=== PATIENT | female | born 1940 | race Caucasian/White ===

== ENCOUNTER → 2017-06-02 09:45 | Outpatient (CLI) | payer MEDICARE, OTHER, SELFPAY ==
[2017-06-02 10:32] LABS: Alanine Aminotransferase 25 U/L (12-78); Albumin Level 3.7 gm/dL (3.4-5.0); Albumin/Globulin Ratio 1.1 (1.1-1.8); Alkaline Phosphatase 82 U/L (46-116); Anion Gap 11.9 mEq/L (5-15); Aspartate Amino Transferase 20 U/L (15-37); Bilirubin,Total 1.1 mg/dL (0.2-1.0); Blood Urea Nitrogen 20 mg/dL (7-18); Calcium 9.2 mg/dL (8.5-10.1); Carbon Dioxide 31 mmol/L (21.0-32.0); Chloride 105 mmol/L (98-107); Chol/HDL Ratio 1.9 (1-3.5); Cholesterol 154 mg/dL (140-200); Creatinine,Serum 0.67 mg/dL (0.55-1.02); Estimated Glomerular Filt Rate 86 ml/min (>60); GFR (African American) 104 ML/MIN (>60); Globulin 3.4 gm/dl (1.3-3.2); Glucose 92 mg/dL (74-106); HDL Cholesterol 83 mg/dL (29-89); LDL Cholesterol 60 mg/dL (0-130); Potassium 3.9 mmoL/L (3.5-5.1); Sodium 144 mmol/L (136-145); Total Protein,Serum 7.1 gm/dL (6.4-8.2); Triglycerides 54 mg/dL (30-200); VLDL Cholesterol 11 mg/dL (0-40)
== END ==
PROVIDERS: Visit Provider Internal Medicine
DX: E78.5 Hyperlipidemia, unspecified (principal); I10 Essential (primary) hypertension; M15.0 Primary generalized (osteo)arthritis; M81.0 Age-related osteoporosis without current pathological fracture
CPT/HCPCS: 36415; 80053; 80061

== ENCOUNTER → 2017-12-01 09:15 | Outpatient (CLI) | payer MEDICARE, OTHER, SELFPAY ==
[2017-12-01 09:33] LABS: Basophils % 0.3 % (0.1-2.0); Eosinophils # 0.3 K/mm3 (0.0-0.4); Eosinophils % 4.1 % (0.1-12.0); Hematocrit 40.7 % (37.0-47.0); Lymphocytes # 1.5 K/mm3 (0.7-4.5); Mean Corpuscular HGB Conc 31.9 g/dL (31.8-35.4); Mean Corpuscular Hemoglobin 29.4 pg (27.0-31.2); Mean Corpuscular Volume 92.3 fl (81-99); Mean Platelet Volume 6.9 fl (7.4-10.4); Monocytes # 0.4 K/mm3 (0.1-1.0); Monocytes % 6.2 % (1.7-9.3); Neutrophils # 4.2 K/mm3 (1.8-7.8); Neutrophils % 66.5 % (37.0-80.0); Platelet Count 268 K/mm3 (142-424); Red Blood Count 4.41 M/mm3 (4.20-5.40); Red Cell Distribution Width 13.2 % (11.5-17.5); White Blood Count 6.4 K/mm3 (4.8-10.8)
[2017-12-01 10:17] LABS: Alanine Aminotransferase 21 U/L (12-78); Albumin Level 3.5 gm/dL (3.4-5.0); Albumin/Globulin Ratio 1.1 (1.1-1.8); Alkaline Phosphatase 84 U/L (46-116); Anion Gap 11.3 mEq/L (5-15); Aspartate Amino Transferase 18 U/L (15-37); Bilirubin,Total 1.3 mg/dL (0.2-1.0); Blood Urea Nitrogen 18 mg/dL (7-18); Calcium 8.9 mg/dL (8.5-10.1); Carbon Dioxide 31 mmol/L (21.0-32.0); Chloride 106 mmol/L (98-107); Chol/HDL Ratio 1.8 (1-3.5); Cholesterol 160 mg/dL (140-200); Creatinine,Serum 0.65 mg/dL (0.55-1.02); Estimated Glomerular Filt Rate 89 ml/min (>60); GFR (African American) 107 ML/MIN (>60); Globulin 3.1 gm/dl (1.3-3.2); Glucose 85 mg/dL (74-106); HDL Cholesterol 87 mg/dL (29-89); LDL Cholesterol 62 mg/dL (0-130); Potassium 4.3 mmoL/L (3.5-5.1); Sodium 144 mmol/L (136-145); Total Protein,Serum 6.6 gm/dL (6.4-8.2); Triglycerides 54 mg/dL (30-200); VLDL Cholesterol 11 mg/dL (0-40)
== END ==
PROVIDERS: PCP Internal Medicine; Visit Provider Internal Medicine
DX: I10 Essential (primary) hypertension (principal); E78.5 Hyperlipidemia, unspecified; M15.0 Primary generalized (osteo)arthritis; K58.0 Irritable bowel syndrome with diarrhea; M81.0 Age-related osteoporosis without current pathological fracture; M41.25 Other idiopathic scoliosis, thoracolumbar region
CPT/HCPCS: 36415; 80053; 80061; 82652; 85025

== ENCOUNTER → 2018-04-14 15:15 | Outpatient (POV) | payer MEDICARE, OTHER, SELFPAY | PROVIDERS: Visit Provider Dermatology | DX: Z00.00 Encounter for general adult medical examination without abnormal findings (principal) ==

== ENCOUNTER → 2018-05-28 09:13 | Outpatient (CLI) | payer MEDICARE, OTHER, SELFPAY ==
[2018-05-28 19:43] LABS: Alanine Aminotransferase 21 U/L (12-78); Albumin Level 3.8 gm/dL (3.4-5.0); Albumin/Globulin Ratio 1.2 (1.1-1.8); Alkaline Phosphatase 78 U/L (46-116); Anion Gap 14.2 mEq/L (5-15); Aspartate Amino Transferase 19 U/L (15-37); Bilirubin,Total 1.2 mg/dL (0.2-1.0); Blood Urea Nitrogen 21 mg/dL (7-18); Calcium 9.1 mg/dL (8.5-10.1); Carbon Dioxide 29 mmol/L (21.0-32.0); Chloride 105 mmol/L (98-107); Chol/HDL Ratio 2.3 (1-3.5); Cholesterol 169 mg/dL (140-200); Creatinine,Serum 0.71 mg/dL (0.55-1.02); Estimated Glomerular Filt Rate 80 ml/min (>60); GFR (African American) 97 ML/MIN (>60); Globulin 3.1 gm/dl (1.3-3.2); Glucose 83 mg/dL (74-106); HDL Cholesterol 75 mg/dL (29-89); LDL Cholesterol 78 mg/dL (0-130); Potassium 4.2 mmoL/L (3.5-5.1); Sodium 144 mmol/L (136-145); Total Protein,Serum 6.9 gm/dL (6.4-8.2); Triglycerides 78 mg/dL (30-200); VLDL Cholesterol 16 mg/dL (0-40)
== END ==
PROVIDERS: Visit Provider Internal Medicine
DX: I10 Essential (primary) hypertension (principal); E78.5 Hyperlipidemia, unspecified; M15.0 Primary generalized (osteo)arthritis
CPT/HCPCS: 36415; 80053; 80061

== ENCOUNTER → 2018-07-14 12:05 | Outpatient (POV) | payer MEDICARE, OTHER, SELFPAY | PROVIDERS: Visit Provider Dermatology | DX: Z00.00 Encounter for general adult medical examination without abnormal findings (principal) ==

== ENCOUNTER → 2018-09-28 11:33 | Outpatient (CLI) | payer MEDICARE, OTHER, SELFPAY ==
--- NOTE | 2018-09-28 11:37 | XR_ITS ---
EXAM: XR thoracic spine 3V HISTORY: ITS.REASON: THORACOLUMBAR BACK PAIN; S/P BACK SURGERY Comparison: None FINDINGS: There is severe dextroscoliosis of the thoracic spine measuring 68 degrees by the Poole technique. No acute fracture or dislocation. No lytic or blastic change. IMPRESSION: Severe dextroscoliosis of the midthoracic spine
--- NOTE | 2018-09-28 11:37 | XR_ITS ---
EXAM: XR lumbar spine min 4V HISTORY: ITS.REASON: THORACOLUMBAR BACK PAIN; S/P BACK SURGERY ORDERING PHYSICIAN: Giovany Grubbs PATIENT AGE: 78 years COMPARISON: None FINDINGS: There is severe mid thoracic scoliosis convex right with compensatory lumbar curvature convex left with degenerative disc disease from L1 to S1 and mild facet arthritic changes at L4-L5 and L5-S1. No fracture or dislocation. No lytic or blastic change. Osteitis pubis is noted. There are some hypertrophic changes along the right iliac crest nonspecific. IMPRESSION: Compensatory lumbar curvature convex left measuring 27 degrees with degenerative disc disease and facet arthritic change
== END ==
PROVIDERS: PCP Internal Medicine; Visit Provider Internal Medicine
DX: M54.5 Low back pain (principal); M54.6 Pain in thoracic spine
CPT/HCPCS: 72072; 72110

== ENCOUNTER → 2018-10-06 14:39 | Outpatient (CLI) | payer MEDICARE, OTHER, SELFPAY ==
[2018-10-06 14:42] LABS: Microscopic, Urine URINE MICROSCOPIC (MICROSCOPIC)
[2018-10-06 14:57] LABS: Appearance,Urine CLEAR (Clear); Bilirubin,Urine Negative (Negative); Blood, Urine 1+ (Negative); Color,Urine YELLOW (Yellow); Glucose,Urine (UA) TRACE (Negative); Ketones,Urine Negative (Negative); Leukocyte Esterase,Urine Negative (Negative); Nitrate,Urine Negative (Negative); PH,Urine 6.5 (5.0-8.5); Protein,Urine Negative (Negative); Specific Gravity, Urine <= 1.005 (1.005-1.030); Urobilinogen,Urine 0.2 EU/dl (0.2)
[2018-10-06 15:00] LABS: Basophils % 0.1 % (0.1-2.0); Eosinophils % 0.1 % (0.1-12.0); Hematocrit 45.8 % (37.0-47.0); Hemoglobin 14.7 g/dL (12.2-16.2); Lymphocytes # 0.7 K/mm3 (0.7-4.5); Lymphocytes % 4.6 % (10-50); Mean Corpuscular HGB Conc 32.2 g/dL (31.8-35.4); Mean Corpuscular Hemoglobin 30.1 pg (27.0-31.2); Mean Corpuscular Volume 93.6 fl (81-99); Mean Platelet Volume 7.3 fl (7.4-10.4); Monocytes # 0.6 K/mm3 (0.1-1.0); Monocytes % 3.7 % (1.7-9.3); Neutrophils # 13.9 K/mm3 (1.8-7.8); Neutrophils % 91.5 % (37.0-80.0); Platelet Count 384 K/mm3 (142-424); Red Blood Count 4.89 M/mm3 (4.20-5.40); Red Cell Distribution Width 13.3 % (11.5-17.5); White Blood Count 15.2 K/mm3 (4.8-10.8)
--- NOTE | 2018-10-06 15:02 | XR_ITS ---
XR acute abdomen series HISTORY: ITS.REASON: ABD PAIN,CHEST PAIN,BLOATING,DIARRHEA ORDERING PHYSICIAN: Giovany Grubbs PATIENT AGE: 78 years COMPARISON: None Frontal view of the chest shows moderate to severe thoracic scoliosis convex right. Unremarkable cardiovascular structures with clear lungs. Upright and supine views of the abdomen and straights a nonspecific bowel gas pattern without obstruction or free air. There are surgical clips in the right upper quadrant. There are multiple calcifications overlying the left kidney consistent with left nephrolithiasis. CT may confirm. There are degenerative changes in the lumbar spine. Hypertrophic changes are present at the iliac crest bilaterally. IMPRESSION: Left nephrolithiasis, no acute finding
[2018-10-06 15:07] LABS: MANUAL DIFFERENTIAL MANUAL DIFFERENTIAL (MANUAL DIFF)
[2018-10-06 15:11] LABS: Alanine Aminotransferase 20 U/L (12-78); Albumin Level 3.6 gm/dL (3.4-5.0); Albumin/Globulin Ratio 0.9 (1.1-1.8); Alkaline Phosphatase 95 U/L (46-116); Amylase 55 U/L (25-115); Anion Gap 12.4 mEq/L (5-15); Aspartate Amino Transferase 10 U/L (15-37); Bilirubin,Total 0.8 mg/dL (0.2-1.0); Blood Urea Nitrogen 23 mg/dL (7-18); Carbon Dioxide 32 mmol/L (21.0-32.0); Chloride 98 mmol/L (98-107); Creatinine,Serum 0.93 mg/dL (0.55-1.02); Estimated Glomerular Filt Rate 58 ml/min (>60); GFR (African American) 71 ML/MIN (>60); Globulin 3.9 gm/dl (1.3-3.2); Glucose 173 mg/dL (74-106); Potassium 4.4 mmoL/L (3.5-5.1); Sodium 138 mmol/L (136-145); Total Protein,Serum 7.5 gm/dL (6.4-8.2); Troponin I < 0.02 ng/ml (0.00-0.06)
[2018-10-06 15:31] LABS: Bacteria,Urine Trace /lpf; WBC,Urine Occasional #/hpf (0-3)
[2018-10-06 15:50] LABS: Lymphocytes % 4 % (10-50); Monocytes % 1 % (2-9); Myelocytes % 1 (0-1); Neutrophils % 93 % (42-76); Total Cells Counted 100
[2018-10-06 15:51] LABS: Platelet Estimate Normal; RBC Morphology Normal
--- NOTE | 2018-10-06 15:55 | CT_ITS ---
CT abdomen pelvis wo con CLINICAL INDICATION: Abdominal pain, bloating, diarrhea ITS.REASON: ABD PAIN,BLOATING,DIARRHEA ORDERING PHYSICIAN: Giovany Grubbs PATIENT AGE: 78 years COMPARISON: TECHNIQUE: Axial images obtained with sagittal and coronal reformats. All CT scans at the facility use one or more dose reduction, viz: automated exposure control, ma/kV adjustment per patient size (including targeted exams where dose is matched to indication, i.e. head), or iterative reconstruction technique. FINDINGS: Moderate to severe thoracic scoliosis with mild lumbar scoliosis. There are atelectatic changes in the left lung base. Coronary artery calcifications are noted. Postcholecystectomy change. The spleen, adrenal glands, pancreas, and kidneys have an unremarkable appearance. Prior hysterectomy. No evidence of appendicitis. There is john colonic diverticulosis. No evidence of diverticulitis. No intestinal obstruction or free air. There is a mild amount of retained colonic feces. Thoracolumbar scoliosis with degenerative disc disease. IMPRESSION: John colonic diverticulosis with moderate amount of retained colonic feces. No acute finding
== END ==
PROVIDERS: Visit Provider Internal Medicine
DX: R07.9 Chest pain, unspecified (principal); R10.9 Unspecified abdominal pain; R19.7 Diarrhea, unspecified; R14.0 Abdominal distension (gaseous)
CPT/HCPCS: 36415; 74021; 74176; 80053; 81001; 82150; 84484; 85007; 85025; 93005

== ENCOUNTER → 2018-10-09 14:26 | Outpatient (CLI) | payer MEDICARE, OTHER, SELFPAY ==
[2018-10-09 14:43] LABS: Basophils % 0.2 % (0.1-2.0); Eosinophils # 0.3 K/mm3 (0.0-0.4); Eosinophils % 1.6 % (0.1-12.0); Hematocrit 42.6 % (37.0-47.0); Hemoglobin 13.4 g/dL (12.2-16.2); Lymphocytes # 1.9 K/mm3 (0.7-4.5); Lymphocytes % 9.9 % (10-50); Mean Corpuscular HGB Conc 31.4 g/dL (31.8-35.4); Mean Corpuscular Hemoglobin 29.2 pg (27.0-31.2); Mean Corpuscular Volume 93.1 fl (81-99); Mean Platelet Volume 6.7 fl (7.4-10.4); Monocytes # 1.2 K/mm3 (0.1-1.0); Monocytes % 6.1 % (1.7-9.3); Neutrophils # 15.7 K/mm3 (1.8-7.8); Neutrophils % 82.4 % (37.0-80.0); Platelet Count 363 K/mm3 (142-424); Red Blood Count 4.57 M/mm3 (4.20-5.40); Red Cell Distribution Width 13.6 % (11.5-17.5)
[2018-10-09 15:02] LABS: MANUAL DIFFERENTIAL MANUAL DIFFERENTIAL (MANUAL DIFF)
[2018-10-09 16:14] LABS: Hypochromasia 1+; Lymphocytes % 17 % (10-50); Monocytes % 4 % (2-9); Neutrophils % 75 % (42-76); Platelet Estimate Normal; Total Cells Counted 100
[2018-10-09 16:28] LABS: C-Reactive Protein 11.2 mg/dL (0.0-0.9)
[2018-10-09 16:36] LABS: Erythrocyte Sedimentation Rate 25 mm/hr (0-30)
[2018-10-13 12:10] LABS: B. henselae IgG Negative titer (Neg:<1:320); B. henselae IgM Negative titer (Neg:<1:100); B. quintana IgG Negative titer (Neg:<1:320)
[2018-10-14 09:30] LABS: B. quintana IgM Negative titer (Neg:<1:100)
== END ==
PROVIDERS: Visit Provider Internal Medicine
DX: M54.5 Low back pain (principal); M54.6 Pain in thoracic spine; D72.829 Elevated white blood cell count, unspecified; R68.83 Chills (without fever); S40.819A Abrasion of unspecified upper arm, initial encounter; W55.03XA Scratched by cat, initial encounter
CPT/HCPCS: 36415; 85007; 85025; 85651; 86140; 86611; 87040

== ENCOUNTER 2018-10-11 10:46 | Observation (INO) ==
[2018-10-11 11:19] LABS: Microscopic, Urine URINE MICROSCOPIC (MICROSCOPIC)
[2018-10-11 11:21] LABS: Appearance,Urine CLEAR (Clear); Bilirubin,Urine Negative (Negative); Blood, Urine 2+ (Negative); Color,Urine YELLOW (Yellow); Glucose,Urine (UA) Negative (Negative); Ketones,Urine Negative (Negative); Leukocyte Esterase,Urine Negative (Negative); PH,Urine 7.5 (5.0-8.5); Protein,Urine Negative (Negative)
[2018-10-11 11:29] LABS: Bacteria,Urine 3+ /lpf
[2018-10-11 11:30] LABS: Basophils % 0.1 % (0.1-2.0); Eosinophils % 0.1 % (0.1-12.0); Hematocrit 39.5 % (37.0-47.0); Hemoglobin 12.9 g/dL (12.2-16.2); Lymphocytes # 1.1 K/mm3 (0.7-4.5); Lymphocytes % 3.7 % (10-50); Mean Corpuscular HGB Conc 32.7 g/dL (31.8-35.4); Mean Platelet Volume 7.1 fl (7.4-10.4); Monocytes # 1.4 K/mm3 (0.1-1.0); Monocytes % 4.6 % (1.7-9.3); Neutrophils # 27.4 K/mm3 (1.8-7.8); Neutrophils % 91.5 % (37.0-80.0); Platelet Count 348 K/mm3 (142-424); Red Blood Count 4.29 M/mm3 (4.20-5.40); Red Cell Distribution Width 13.4 % (11.5-17.5)
[2018-10-11 11:34] LABS: Albumin Level 2.9 gm/dL (3.4-5.0); Albumin/Globulin Ratio 0.8 (1.1-1.8); Anion Gap 11.4 mEq/L (5-15); Bilirubin,Total 1.3 mg/dL (0.2-1.0); Calcium 9.1 mg/dL (8.5-10.1); Globulin 3.8 gm/dl (1.3-3.2); Total Protein,Serum 6.7 gm/dL (6.4-8.2)
[2018-10-11 11:42] LABS: Lymphocytes % 4 % (10-50); Monocytes % 5 % (2-9); Neutrophils % 69 % (42-76); RBC Morphology Normal; Total Cells Counted 100
--- NOTE | 2018-10-11 11:42 | Emergency Department Note ---
ED Disposition <Gregg Landeros - Last Filed: 10/11/18 11:37> Condition on Discharge: Good - Critical Care Critical Care Time: No <SivaJosef Gracia - Last Filed: 11/09/18 10:17> Clinical Impression: Abdominal pain Qualifiers: Abdominal location: generalized Qualified Code(s): R10.84 - Generalized abdomi nal pain Disposition: Admitted as Observation Attestation: On 10/11/18, the high probability of a clinically significant, sudden or life threatening deterioration of the following system(s) required my full and direct attention, intervention and personal management. The time I documented below is in addition to time spent performing reported procedures but includes the following listed in this critical care notation. Medical Decision Making - Lab Data Result diagrams: 10/11/18 11:10 <Gregg Landeros - Last Filed: 10/11/18 11:37> - Medical Records Medical records reviewed: Yes: I reviewed the patient's medical records. - Larry Inquiry Pt receiving controlled substance: No - Lab Data Result diagrams: 10/13/18 05:32 10/13/18 05:32 <SivaJosef Gracia - Last Filed: 11/09/18 10:17> Vital Signs: 10/11/18 11:00 10/11/18 11:18 10/11/18 12:00 Temperature 97.8 F Temperature Source Oral Pulse Rate Pulse Rate [Right Brachial] 101 H 85 92 H Respiratory Rate 18 18 16 Blood Pressure Blood Pressure [Right Arm] 140/76 124/70 145/86 H Blood Pressure Mean [Right Arm] 97 88 105 Blood Pressure Source Blood Pressure Source [Right Arm] Automatic Cuff Automatic Cuff Automatic Cuff Blood Pressure Position Blood Pressure Position [Right Arm] Sitting Sitting Sitting 02 Sat by Pulse Oximetry 99 98 94 L Oxygen Delivery Method Room Air Room Air Room Air 10/11/18 12:30 10/11/18 13:00 10/11/18 13:05 Temperature 98.2 F Temperature Source Oral Pulse Rate 70 Pulse Rate [Right Brachial] 75 Respiratory Rate 17 18 Blood Pressure 121/85 Blood Pressure [Right Arm] 131/65 Blood Pressure Mean [Right Arm] 87 Blood Pressure Source Automatic Cuff Blood Pressure Source [Right Arm] Automatic Cuff Blood Pressure Position Sitting Blood Pressure Position [Right Arm] Sitting 02 Sat by Pulse Oximetry 94 L 95 Oxygen Delivery Method Room Air Room Air Room Air - Lab Data Lab Results 10/11/18 11:10: Urine Color Yellow, Urine Appearance Clear, Urine pH 7.5, Ur Specific [place] 1.010, Urine Protein Negative, Urine Glucose (UA) Negative, Urine Ketones Negative, Urine Blood 2+, Urine Nitrate Negative, Urine Bilirubin Negative, Urine Urobilinogen 1.0, Ur Leukocyte Esterase Negative, Urine RBC 5- 10, Urine WBC 3-5, Ur Squamous Epith Cells 5-10, Urine Bacteria 3+ 10/11/18 11:10: Stool Occult Blood Negative 10/11/18 11:10: WBC 30.0 H* D, RBC 4.29, Hgb 12.9, Hct 39.5, MCV 92.0, MCH 30.1, MCHC 32.7, RDW 13.4, Plt Count 348, MPV 7.1 L, Neut % (Auto) 91.5 H, Lymph % (Auto) 3.7 L, Kings % (Auto) 4.6, Eos % (Auto) 0.1, Baso % (Auto) 0.1, Neut # (Auto) 27.4 H, Lymph # (Auto) 1.1, Kings # (Auto) 1.4 H, Eos # (Auto) 0.0, Baso # (Auto) 0.0, Total Counted 100, Neutrophils % (Manual) 69, Band Neutrophils % 21.0 H, Lymphocytes % (Manual) 4 L, Atypical Lymphs % 1.0, Monocytes % (Manual) 5, Platelet Estimate Normal, RBC Morphology Normal 10/11/18 11:10: Sodium 138, Potassium 4.4, Chloride 100, Carbon Dioxide 31, Anion Gap 11.4, BUN 18, Creatinine 1.09 H, Estimated Creat Clear 37, Estimated GFR 49 L, Est GFR ( Amer) 59, Glucose 136 H, Calcium 9.1, Total Bilirubin 1.3 H, AST 51 H, ALT 62, Alkaline Phosphatase 116, Total Protein 6.7, Albumin 2.9 L, Globulin 3.8 H, Albumin/Globulin Ratio 0.8 L, Amylase 53, Lipase 76 10/11/18 11:10: Lactate 2.0 Orders (Tests/Meds): ED MEDICATIONS Discontinued Medications Generic Name Dose Route Start Last Admin Trade Name Freq PRN Reason Stop Dose Admin Acetaminophen 650 mg 10/11/18 14:14 10/12/18 13:48 Acetaminophen 325mg Tab PO 11/10/18 14:13 650 mg Q6HP PRN Administration Mild Pain Alprazolam 0.25 mg 10/11/18 13:00 10/11/18 15:18 Xanax 0.25mg Tablet PO 11/10/18 12:59 Not Given TID DIANNE Alprazolam 0.25 mg 10/11/18 21:00 10/12/18 08:13 Xanax 0.25mg Tablet PO 11/10/18 12:59 Not Given TID DIANNE Alprazolam 0.25 mg 10/12/18 21:00 10/12/18 22:41 Xanax 0.25mg Tablet PO 11/11/18 20:59 0.25 mg HS DIANNE Administration Belladonna Alkaloids 60 ml 10/12/18 14:18 10/12/18 15:06 Gi Cocktail 60ml Udc PO 10/12/18 14:19 60 ml ONCE ONE Administration Bisacodyl 10 mg 10/12/18 21:00 10/12/18 21:27 Dulcolax 10mg Supp RC 10/12/18 21:01 10 mg ONCE ONE Administration Diatrizoate Meglum/Diatrizoate Sod 20 ml 10/12/18 12:14 10/12/18 12:15 Rad-Gastrografin (66%-10%);120ml PO 10/12/18 12:15 20 ml ONCE ONE Administration Dicyclomine HCl 10 mg 10/11/18 14:11 Bentyl 10mg Capsule PO 11/10/18 14:10 TIDP PRN ABD PAIN Dicyclomine HCl 10 mg 10/11/18 14:38 10/13/18 12:35 Bentyl 10mg Capsule PO 11/10/18 14:10 10 mg TID DIANNE Administration Sodium Chloride 1,000 mls @ 999 mls/hr 10/11/18 11:15 10/11/18 11:15 Sod Chlor 0.9% 1000ml Bag IV 10/11/18 12:15 999 mls/hr .Q1H1M DIANNE Administration Sodium Chloride 1,000 mls @ 100 mls/hr 10/11/18 12:45 10/11/18 15:17 Sod Chlor 0.9% 1000ml Bag IV 11/10/18 12:44 Not Given .Q10H DIANNE Ampicillin Sodium/Sulbactam 100 mls @ 200 mls/hr 10/11/18 12:45 10/11/18 15: 17 Sodium 3 gm/ Sodium Chloride IV 10/25/18 12:44 Not Given Q8H [facility] Protocol Metronidazole 100 mls @ 100 mls/hr 10/11/18 12:42 Flagyl 500mg/100ml Ivpb IV 10/11/18 13:41 Q12 ONE Protocol Pantoprazole Sodium 40 mg/ 100 mls @ 10 mls/hr 10/11/18 21:00 Sodium Chloride IV 11/10/18 20:59 .Q10H DIANNE Sodium Chloride 1,000 mls @ 100 mls/hr 10/11/18 13:05 10/11/18 15:18 Sod Chlor 0.9% 1000ml Bag IV 11/10/18 12:44 Not Given .Q10H [facility], [facility]1983 Lactated Ringer's 1,000 mls @ 100 mls/hr 10/11/18 14:15 10/13/18 09:58 Lactated Ringer's 1000 Ml Bag IV 11/10/18 14:14 Not Given .Q10H [facility] Ibuprofen 600 mg 10/11/18 14:14 Motrin 600mg Tablet PO 11/10/18 14:13 Q6HP PRN Mild Pain Ioversol 75 ml 10/12/18 12:14 10/12/18 12:15 Rad-Optiray 350 100ml Vial IV 10/12/18 12:15 75 ml ONCE ONE Administration Protocol Irbesartan 75 mg 10/12/18 09:00 Avapro 75mg Tablet PO 11/11/18 08:59 DAILY [facility] Irbesartan 75 mg 10/12/18 09:00 10/13/18 09:54 Avapro 75mg Tablet PO 11/11/18 08:59 Not Given DAILY DIANNE Magnesium Citrate 1 bot 10/12/18 14:31 10/12/18 16:17 Magnesium Citrate 10oz Bottle PO 10/12/18 14:32 1 bot ONCE ONE Administration Morphine Sulfate 2 mg 10/11/18 11:46 10/11/18 11:57 Morphine 2mg/Ml Syringe IV 10/11/18 11:47 2 mg ONCE ONE Administration Morphine Sulfate 2 mg 10/11/18 12:42 Morphine 2mg/Ml Syringe IV 11/10/18 12:41 Q4HP PRN Moderate to Severe Pain Morphine Sulfate 2 mg 10/11/18 14:45 10/11/18 14:56 Morphine 2mg/Ml Syringe IV 10/11/18 14:46 2 mg ONCE ONE Administration Morphine Sulfate 2 mg 10/12/18 21:30 10/12/18 21:33 Morphine 2mg/Ml Syringe IV 11/11/18 21:29 2 mg Q4HP PRN Administration Severe Pain Naproxen 500 mg 10/11/18 21:00 10/13/18 09:55 Naprosyn 500mg Tablet PO 11/10/18 20:59 Not Given BID [facility], [facility] Non-Formulary Medication 1 tab 10/12/18 09:00 Estrogens,Esterified [Menest] PO 11/11/18 08:59 DAILY [facility], [facility] Non-Formulary Medication 20 mg 10/12/18 09:00 Rosuvastatin Calcium PO 11/11/18 08:59 DAILY [facility] Pt's Own Med 1 tab 10/12/18 09:00 10/13/18 09:54 Estrogens,Esterified PO 11/11/18 08:59 Not Given [Menest] 0.625 Mg DAILY [facility] Ondansetron HCl 4 mg 10/11/18 11:46 10/11/18 11:57 Zofran 4mg/2ml Vial IV 10/11/18 11:47 4 mg ONCE ONE Administration Ondansetron HCl 4 mg 10/11/18 12:42 Zofran 4mg/2ml Vial IV 11/10/18 12:41 Q6HP PRN Nausea And Vomiting Ondansetron HCl 4 mg 10/11/18 13:05 10/12/18 21:35 Zofran 4mg/2ml Vial IV 11/10/18 12:41 4 mg Q6HP PRN Administration Nausea And Vomiting Pantoprazole Sodium 40 mg 10/11/18 14:15 10/13/18 09:55 Protonix 40mg Tablet PO 11/10/18 14:14 Not Given BID [facility] Polyethylene Glycol 17 gm 10/11/18 18:00 10/13/18 09:55 Miralax 17gm Packet PO 11/10/18 17:59 Not Given DAILY [facility] Pravastatin Sodium 20 mg 10/11/18 21:00 10/12/18 22:22 Pravachol 20mg Tablet PO 11/10/18 20:59 Not Given HS DIANNE Simethicone 160 mg 10/11/18 14:12 10/13/18 05:41 Mylicon 80mg Chewable Tablet PO 11/10/18 14:11 160 mg Q4HP PRN Administration GAS Sodium Chloride 10 ml 10/11/18 12:42 Saline Flush 10ml Syringe IV 11/10/18 12:41 NEEDED PRN Maintain IV Site Sodium Chloride 10 ml 10/11/18 13:05 Saline Flush 10ml Syringe IV 11/10/18 12:41 NEEDED PRN Maintain IV Site Sodium Chloride 10 ml 10/12/18 12:14 10/12/18 12:15 Rad-Saline Flush 10ml Syringe IV 10/12/18 12:15 10 ml ONCE ONE Administration ORDERS Category Date Time Status Consult to General Surgery [CONS] Routine Cons 10/11/18 12:42 Ordered Abdominal Pain HPI - General Mode of Arrival: Family Vehicle Limitations: No Limitations Description of Symptoms (Recalled from ER Triage Doc. by RN): has been treated by family practitioner (dr ryder) for issues over the last few weeks including right side abd and back pain; patient states they even went as far as to diagnose her with shingles and gave her steroids (no lesions noted); pt further states she has had her gb removed, has had a partial hysterectomy, denies kidney issues and is unsure about whether her appendix is present still or not. <Gregg Landeros - Last Filed: 10/11/18 11:37> <Josef Paniagua - Last Filed: 11/09/18 10:17> - General Chief Complaint: Abdominal Pain Stated Complaint: SevereAbdominal pain Time Seen by Provider: 10/11/18 11:15 - History of Present Illness HPI narrative: The patient is a 78-year-old female who has had abdominal pain for a week or 2. The patient has had generalized pain. The patient is tender. (Gregg Landeros) - Related Data Home Medications Medication Instructions Recorded Confirmed ALPRAZolam [Alprazolam 0.25mg 0.25 mg PO HS 03/01/18 10/12/18 Tab] Irbesartan [Irbesartan 75mg Tablet] 75 mg PO DAILY 03/01/18 10/12/18 Rosuvastatin Calcium 5 mg PO DAILY 03/01/18 10/12/18 Estrogens,Esterified [Menest] 0.313 mg PO HS 10/12/18 10/12/18 Previous Rx's Medication Instructions Recorded Dicyclomine HCl [Bentyl 10mg 10 mg PO TIDP PRN 30 Days #60 cap 10/13/18 capsule] Omeprazole [Omeprazole 20mg 20 mg PO DAILY 30 Days #30 cap 10/13/18 Capsule] Allergies Allergy/AdvReac Type Severity Reaction Status Date / Time levofloxacin [From LEVAQUIN] Allergy Unknown Verified 11/25/17 17:35 Penicillins [PENICILLINS] Allergy Unknown Verified 11/25/17 17:35 Sulfa (Sulfonamide Allergy Unknown Verified 11/25/17 17:35 Antibiotics) [SULFA (SULFONAMIDE ANTIBIOTICS)] [facility] History - Hepatitis A Screen Drug use history?: No High risk sexual behaviors?: No History of sexually transmitted infection?: No Currently employed?: No Childcare worker?: No Do you have indoor plumbing?: Yes Do you have electricity?: Yes Laterality Cases: Bilateral: Tonsillectomy - Social History Alcohol Intake: never <Gregg Landeros - Last Filed: 10/11/18 11:37> I have reviewed the patient's past medical history: Yes <Josef Paniagua - Last Filed: 11/09/18 10:17> - Hepatitis A Screen Attestation statement:: This patient has been screened for Hepatitis A risk factors. ROS Obtained: Yes All systems reviewed & no additional complaints <Josef Paniagua - Last Filed: 11/09/18 10:17> Physical Exam - General General appearance: alert, in no apparent distress - Respiratory Respiratory exam: Present: normal lung sounds bilaterally. Absent: respiratory distress - Cardiovascular Cardiovascular exam: Present: regular rate, normal rhythm. Absent: JVD - Neurological Exam Neurological exam: Present: alert, oriented X3 <Josef Paniagua - Last Filed: 11/09/18 10:17>
--- NOTE | 2018-10-11 16:36 | History & Physical Report ---
*Admission Date: 10/11/18 *Chief complaint: Worsening abdominal pain *History of present illness: Ms. Armstrong is a 78-year-old female who presents with acute worsening of abdominal pain. She came to the ER today due to the combination of symptoms including nausea, severe abdominal pain, and generalized worsening feeling over the past week. She reports that for the past 2 weeks she has had some intermittent abdominal pain with acute change a week ago when she had several loose watery bowel movements in 1 day. She took Imodium which resolved her diarrhea but then reports over the course of the week she has had progressive worsening of crampy acute onset pain it is at 9-10 out of 10. Pain will resolve on its own with Tylenol or flurbiprofen. Has been trying to have bowel movements daily and using enemas and suppositories with minimal benefit. Has not tried any stool softeners or medications from above. Did state as well over the past week she has had worsening heartburn type symptoms and started taking Tums 6 to 8 tablets daily for the past week which gave her concern that she is caused herself a problem. She presented on the for similar symptoms at which time blood cultures were obtained, CT was obtained, urine culture was obtained, and lab work was performed. The only remarkable findings at that time were a white cell count of 19,000 and incidental findings of nephrolithiasis. CT of the abdomen was otherwise unremarkable with appreciation of diffuse diverticulosis but no signs of inflammation or stranding. Additionally her kidney function and electrolytes were normal. On repeat work-up today patient has a worsening white cell count of 30,000, elevated CRP, but otherwise unremarkable labs. No imaging done in the ER today however. She has not had antibiotics over the past week. Did have some steroids over a week ago. Patient was admitted to medicine for further management and work-up. On assessment after patient got to the floor, patient is sitting in bedside chair comfortable with normal vitals. No acute distress on room air. Complaining of no abdominal pain at this time. She is accompanied by her son and daughter who are very aggressive advocates for her care, additionally she has a second daughter who is a nurse in [employer] [facility] who is sending suggestions via text. Family is very concerned for her status given the white cell count elevation and severe abdominal pain, however on initial assessment, patient is appropriate and in no acute discomfort after having received only IV fluids and morphine. Denies headache, chest pain, nausea, vomiting, complains of abdominal discomfort, constipation. No confusion or dizziness. No bleeding, no hematochezia, no hematemesis. [facility] History I have reviewed the patient's past medical history: Yes Medical History: Reports:: Hypertension *Have you ever received a pneumonia vaccine?: No *Have you received a flu vaccine this season?: No Comment:: IBS-D Laterality Cases: Bilateral: Tonsillectomy Other Surgeries: Yes: Other (Back surgery for scoliosis) - *Social History Smoking Status: Smoker, status unknown Alcohol Intake: never Substance Use Type: denies use *Occupational Status:: retired *Travel in the last 8 weeks: None Family Hx:: Non-contributory Review of Systems - Review of Systems Review of systems:: pertinent systems reviewed and negative unless documented below Meds Home Medications Medication Instructions Recorded Confirmed Type ALPRAZolam [Alprazolam 0.25mg 0.25 mg PO TID 03/01/18 03/01/18 History Tab] Estrogens,Esterified [Menest] 1 tab PO DAILY 03/01/18 03/01/18 History Irbesartan 75 mg PO DAILY 03/01/18 03/01/18 History Rosuvastatin Calcium 20 mg PO DAILY 03/01/18 03/01/18 History Allergies Allergy/AdvReac Type Severity Reaction Status Date / Time levofloxacin [From LEVAQUIN] Allergy Unknown Verified 11/25/17 17:35 Penicillins [PENICILLINS] Allergy Unknown Verified 11/25/17 17:35 Sulfa (Sulfonamide Allergy Unknown Verified 11/25/17 17:35 Antibiotics) [SULFA (SULFONAMIDE ANTIBIOTICS)] Exam Vital signs and Labs for Last 24 Hours: Temp Pulse Resp BP Pulse Ox 98.4 F 96 H 16 134/71 95 10/11/18 16:00 10/11/18 16:00 10/11/18 16:00 10/11/18 16:00 10/11/18 16:00 Laboratory Results - last 24 hr 10/11/18 11:10: Urine Color Yellow, Urine Appearance Clear, Urine pH 7.5, Ur Specific [place] 1.010, Urine Protein Negative, Urine Glucose (UA) Negative, Urine Ketones Negative, Urine Blood 2+, Urine Nitrate Negative, Urine Bilirubin Negative, Urine Urobilinogen 1.0, Ur Leukocyte Esterase Negative, Urine RBC 5- 10, Urine WBC 3-5, Ur Squamous Epith Cells 5-10, Urine Bacteria 3+ 10/11/18 11:10: Stool Occult Blood Negative 10/11/18 11:10: WBC 30.0 H* D, RBC 4.29, Hgb 12.9, Hct 39.5, MCV 92.0, MCH 30.1, MCHC 32.7, RDW 13.4, Plt Count 348, MPV 7.1 L, Neut % (Auto) 91.5 H, Lymph % (Auto) 3.7 L, [place] % (Auto) 4.6, Eos % (Auto) 0.1, Baso % (Auto) 0.1, Neut # (Auto) 27.4 H, Lymph # (Auto) 1.1, [place] # (Auto) 1.4 H, Eos # (Auto) 0.0, Baso # (Auto) 0.0, Total Counted 100, Neutrophils % (Manual) 69, Band Neutrophils % 21.0 H, Lymphocytes % (Manual) 4 L, Atypical Lymphs % 1.0, Monocytes % (Manual) 5, Platelet Estimate Normal, RBC Morphology Normal 10/11/18 11:10: Sodium 138, Potassium 4.4, Chloride 100, Carbon Dioxide 31, Anion Gap 11.4, BUN 18, Creatinine 1.09 H, Estimated Creat Clear 37, Estimated GFR 49 L, Est GFR ( Amer) 59, Glucose 136 H, Calcium 9.1, Total Bilirubin 1.3 H, AST 51 H, ALT 62, Alkaline Phosphatase 116, Total Protein 6.7, Albumin 2.9 L, Globulin 3.8 H, Albumin/Globulin Ratio 0.8 L, Amylase 53, Lipase 76 10/11/18 11:10: Lactate 2.0 I & O for Last 24 hours: Intake & Output 10/08/18 10/09/18 10/10/18 10/11/18 23:59 23:59 23:59 23:59 Intake Total 1000 / 1000 Output Total 350 / 350 Balance 650 / 650 Weight 56.274 kg - *Routine HEENT Exam Head: Present: normocephalic Eye: Present: EOMI, PERRL ENT: Present: mucous membranes moist - *Routine Neck Exam Present: supple. Absent: lymphadenopathy - *Routine Respiratory Exam Present: CTA bilaterally - *Routine Cardiovascular Exam Present: RRR - *Routine Abdominal Exam Present: soft, normoactive bowel sounds, tenderness (Diffuse nonfocal tenderness 2-3/10. Palpable density in lower abdomen, possible scybala). Absent: distended, rebound, guarding, organomegaly - *Routine Extremities Exam Absent: cyanosis, clubbing, edema - Routine Back/Spine/Pelvis Exam Back/Spine: Absent: CVA tenderness, paraspinal tenderness Comments: Significant thoracic scoliosis with prominence of right side of back, well- healed midline scar along entire length of back from previous surgery, no rash. - *Routine Skin Exam Present: warm. Absent: erythema, rash - *Routine Neurological Exam Present: alert, oriented X3. Absent: altered mental status Assessment and Plan (1) GERD (gastroesophageal reflux disease) Current visit: Yes Status: Acute Qualifiers: Esophagitis presence: esophagitis presence not specified Qualified Code(s): K21.9 - Gastro-esophageal reflux disease without esophagitis Category: Medical Code(s): K21.9 - Gastro-esophageal reflux disease without esophagitis Initiate PPI (2) Leukocytosis Current visit: Yes Status: Acute Qualifiers: Leukocytosis type: unspecified Qualified Code(s): D72.829 - Elevated white blood cell count, unspecified Category: Medical Code(s): D72.829 - Elevated white blood cell count, unspecified Unclear etiology at this time. Patient also has elevation in her CRP. While it is suggestive of possible infection, she has no abnormalities on her vitals are focal findings that would suggest etiology. No concern for peritonitis based on exam. Differential diagnosis consists of diverticulitis, leukemoid reaction, deep marginalization, pain, C. difficile, or unspecified intra-abdominal infection (TBD). We will repeat lab work in the morning. Decision to hold on antibiotics at this time given no other signs of infection and no focal findings. Suspect it would be shot in the dark to initiate antibiotics empirically without other findings. Of note patient's blood culture and urine culture from 2 days ago were negative at 48 hours giving additional comfort and holding antibiotics at this time. Will have low threshold to initiate if patient has clinical change. If has clinical change would initiate cefepime and Flagyl. If has loose stools, will obtain C. difficile culture and consider initiation of vancomycin and Flagyl if positive. (3) Hypertension Current visit: Yes Status: Chronic Qualifiers: Hypertension type: essential hypertension Qualified Code(s): I10 - Essential (primary) hypertension Category: Medical Code(s): I10 - Essential (primary) hypertension Continue home medications (4) Abdominal pain Current visit: Yes Status: Acute Qualifiers: Abdominal location: generalized Qualified Code(s): R10.84 - Generalized abdominal pain Category: Medical Code(s): R10.9 - Unspecified abdominal pain Unclear etiology, see above. Tylenol, naproxen, Bentyl. Monitor for improvement. KUB to assess for any obstructions or pathology. If symptoms worsen, KUB shows abnormalities, will pursue CAT scan with contrast. (5) Kyphoscoliosis Current visit: No Status: Chronic Category: Medical Code(s): M41.9 - Scoliosis, unspecified
[2018-10-12 06:24] LABS: Basophils % 0.2 % (0.1-2.0); Eosinophils # 0.2 K/mm3 (0.0-0.4); Eosinophils % 1.2 % (0.1-12.0); Hematocrit 32.8 % (37.0-47.0); Lymphocytes # 1.8 K/mm3 (0.7-4.5); Lymphocytes % 12.8 % (10-50); Mean Corpuscular HGB Conc 32.2 g/dL (31.8-35.4); Mean Corpuscular Volume 93.2 fl (81-99); Mean Platelet Volume 6.7 fl (7.4-10.4); Monocytes # 0.8 K/mm3 (0.1-1.0); Monocytes % 5.8 % (1.7-9.3); Neutrophils # 11.4 K/mm3 (1.8-7.8); Platelet Count 275 K/mm3 (142-424); Red Blood Count 3.52 M/mm3 (4.20-5.40); Red Cell Distribution Width 13.5 % (11.5-17.5); White Blood Count 14.2 K/mm3 (4.8-10.8)
[2018-10-12 07:00] LABS: Albumin Level 2.3 gm/dL (3.4-5.0); Albumin/Globulin Ratio 0.8 (1.1-1.8); Anion Gap 8.2 mEq/L (5-15); Total Protein,Serum 5.3 gm/dL (6.4-8.2)
[2018-10-12 07:06] LABS: Hemoglobin 10.6 g/dL (12.2-16.2)
--- NOTE | 2018-10-12 07:22 | Consult Report ---
*Admission Date: 10/11/18 *Reason for consult:: ABDOMINAL PAIN *History of present illness: Patient is a 78-year-old white female seen in consultation from [facility] internal medicine service for abdominal pain. Patient has had some degree of symptoms for over the past 2 weeks. This began as right lateral thoracoabdominal pain. She has seen her primary care provider and has been treated and managed as an outpatient. She actually had been treated for shingles. She did undergo a course of steroids. Her symptoms of right-sided posterior lateral thoracoabdominal pain progressed to some abdominal bloating and constipation. Patient had taken some bowel regimen as an outpatient and then 8 days ago she developed some significant diarrhea. She does state that she has a history of IBS. Over this past week she has had increasing dyspepsia and heartburn. She had been seen and evaluated on 10/09/[address] scan without any contrast. She also had a white blood cell count of 19,000 at that time. Yesterday she had quite severe acute exacerbation of abdominal pain and presented to the emergency department. She was found to have a significant leukocytosis of 30,000. She was admitted for inpatient management. Her symptoms spontaneously resolved. Surgical consultation was ordered. Review of Systems - Review of Systems Review of systems:: pertinent systems reviewed and negative unless documented below [facility] History Medical History: Reports:: Hyperlipidemia, Hypertension Denies:: Cancer, Diabetes Mellitus Type 1, Diabetes Mellitus Type 2, Internal Pacemaker, MRSA *Have you ever received a pneumonia vaccine?: Yes *Have you received a flu vaccine this season?: No Laterality Cases: Bilateral: Tonsillectomy Other Surgeries: Yes: Other (Back surgery for scoliosis). No: Pacemaker Amputation: No Fractures: No - *Social History Educational Level: Attended College Smoking Status: Smoker, status unknown Alcohol Intake: never Substance Use Type: denies use *Occupational Status:: retired Housing: house *Travel in the last 8 weeks: None - Psychiatric History Expresses thoughts of harming self/others: None Suicide Plan Description: No Plan Family Hx:: Non-contributory Meds Home Medications Medication Instructions Recorded Confirmed Type ALPRAZolam [Alprazolam 0.25mg 0.25 mg PO TID 03/01/18 10/12/18 History Tab] Estrogens,Esterified [Menest] 1 tab PO DAILY 03/01/18 10/12/18 History Irbesartan 75 mg PO DAILY 03/01/18 10/12/18 History Rosuvastatin Calcium 20 mg PO DAILY 03/01/18 10/12/18 History Allergies Allergy/AdvReac Type Severity Reaction Status Date / Time levofloxacin [From LEVAQUIN] Allergy Unknown Verified 11/25/17 17:35 Penicillins [PENICILLINS] Allergy Unknown Verified 11/25/17 17:35 Sulfa (Sulfonamide Allergy Unknown Verified 11/25/17 17:35 Antibiotics) [SULFA (SULFONAMIDE ANTIBIOTICS)] Exam Vital signs and Labs for Last 24 Hours: Temp Pulse Resp BP Pulse Ox 98.3 F 85 18 111/60 93 L 10/12/18 03:52 10/12/18 03:52 10/12/18 03:52 10/12/18 03:52 10/12/18 03:52 Laboratory Results - last 24 hr 10/11/18 11:10: Urine Color Yellow, Urine Appearance Clear, Urine pH 7.5, Ur Specific [place] 1.010, Urine Protein Negative, Urine Glucose (UA) Negative, Urine Ketones Negative, Urine Blood 2+, Urine Nitrate Negative, Urine Bilirubin Negative, Urine Urobilinogen 1.0, Ur Leukocyte Esterase Negative, Urine RBC 5- 10, Urine WBC 3-5, Ur Squamous Epith Cells 5-10, Urine Bacteria 3+ 10/11/18 11:10: Stool Occult Blood Negative 10/11/18 11:10: WBC 30.0 H* D, RBC 4.29, Hgb 12.9, Hct 39.5, MCV 92.0, MCH 30.1, MCHC 32.7, RDW 13.4, Plt Count 348, MPV 7.1 L, Neut % (Auto) 91.5 H, Lymph % (Auto) 3.7 L, [place] % (Auto) 4.6, Eos % (Auto) 0.1, Baso % (Auto) 0.1, Neut # (Auto) 27.4 H, Lymph # (Auto) 1.1, [place] # (Auto) 1.4 H, Eos # (Auto) 0.0, Baso # (Auto) 0.0, Total Counted 100, Neutrophils % (Manual) 69, Band Neutrophils % 21.0 H, Lymphocytes % (Manual) 4 L, Atypical Lymphs % 1.0, Monocytes % (Manual) 5, Platelet Estimate Normal, RBC Morphology Normal 10/11/18 11:10: Sodium 138, Potassium 4.4, Chloride 100, Carbon Dioxide 31, Anion Gap 11.4, BUN 18, Creatinine 1.09 H, Estimated Creat Clear 37, Estimated GFR 49 L, Est GFR ( Amer) 59, Glucose 136 H, Calcium 9.1, Total Bilirubin 1.3 H, AST 51 H, ALT 62, Alkaline Phosphatase 116, Total Protein 6.7, Albumin 2.9 L, Globulin 3.8 H, Albumin/Globulin Ratio 0.8 L, Amylase 53, Lipase 76 10/11/18 11:10: Lactate 2.0 10/12/18 05:23: WBC 14.2 H D, RBC 3.52 L, Hgb 10.6 L D, Hct 32.8 L, MCV 93.2, MCH 30.0, MCHC 32.2, RDW 13.5, Plt Count 275, MPV 6.7 L, Neut % (Auto) 80.0, Lymph % (Auto) 12.8, [place] % (Auto) 5.8, Eos % (Auto) 1.2, Baso % (Auto) 0.2, [place] t # (Auto) 11.4 H, Lymph # (Auto) 1.8, [place] # (Auto) 0.8, Eos # (Auto) 0.2, Baso # (Auto) 0.0 I & O for Last 24 hours: Intake & Output 10/09/18 10/10/18 10/11/18 10/12/18 11:59 11:59 11:59 11:59 Intake Total 3008 / 3008 Output Total 350 / 350 Balance 2658 / 2658 Weight 120 lb 124 lb 8 oz - *Routine HEENT Exam Head: Present: normocephalic Eye: Present: EOMI, PERRL ENT: Present: mucous membranes moist - *Routine Neck Exam Present: supple. Absent: lymphadenopathy - *Routine Respiratory Exam Present: CTA bilaterally - *Routine Cardiovascular Exam Present: RRR - *Routine Abdominal Exam Present: soft, normoactive bowel sounds. Absent: tenderness - *Routine Extremities Exam Absent: cyanosis, clubbing, edema - *Routine Skin Exam Present: warm. Absent: rash - *Routine Neurological Exam Present: alert, oriented X3 - Detailed Eye Exam Eyelids: Left normal inspection Results - Labs 10/12/18 05:23 10/11/18 11:10 Laboratory Results - last 24 hr 10/11/18 11:10: Urine Color Yellow, Urine Appearance Clear, Urine pH 7.5, Ur Specific [place] 1.010, Urine Protein Negative, Urine Glucose (UA) Negative, Urine Ketones Negative, Urine Blood 2+, Urine Nitrate Negative, Urine Bilirubin Negative, Urine Urobilinogen 1.0, Ur Leukocyte Esterase Negative, Urine RBC 5- 10, Urine WBC 3-5, Ur Squamous Epith Cells 5-10, Urine Bacteria 3+ 10/11/18 11:10: Stool Occult Blood Negative 10/11/18 11:10: WBC 30.0 H* D, RBC 4.29, Hgb 12.9, Hct 39.5, MCV 92.0, MCH 30.1, MCHC 32.7, RDW 13.4, Plt Count 348, MPV 7.1 L, Neut % (Auto) 91.5 H, Lymph % (Auto) 3.7 L, [place] % (Auto) 4.6, Eos % (Auto) 0.1, Baso % (Auto) 0.1, Neut # (Auto) 27.4 H, Lymph # (Auto) 1.1, [place] # (Auto) 1.4 H, Eos # (Auto) 0.0, Baso # (Auto) 0.0, Total Counted 100, Neutrophils % (Manual) 69, Band Neutrophils % 21.0 H, Lymphocytes % (Manual) 4 L, Atypical Lymphs % 1.0, Monocytes % (Manual) 5, Platelet Estimate Normal, RBC Morphology Normal 10/11/18 11:10: Sodium 138, Potassium 4.4, Chloride 100, Carbon Dioxide 31, Anion Gap 11.4, BUN 18, Creatinine 1.09 H, Estimated Creat Clear 37, Estimated GFR 49 L, Est GFR ( Amer) 59, Glucose 136 H, Calcium 9.1, Total Bilirubin 1.3 H, AST 51 H, ALT 62, Alkaline Phosphatase 116, Total Protein 6.7, Albumin 2.9 L, Globulin 3.8 H, Albumin/Globulin Ratio 0.8 L, Amylase 53, Lipase 76 10/11/18 11:10: Lactate 2.0 10/12/18 05:23: WBC 14.2 H D, RBC 3.52 L, Hgb 10.6 L D, Hct 32.8 L, MCV 93.2, MCH 30.0, MCHC 32.2, RDW 13.5, Plt Count 275, MPV 6.7 L, Neut % (Auto) 80.0, Lymph % (Auto) 12.8, [place] % (Auto) 5.8, Eos % (Auto) 1.2, Baso % (Auto) 0.2, Neut # (Auto) 11.4 H, Lymph # (Auto) 1.8, [place] # (Auto) 0.8, Eos # (Auto) 0.2, Baso # (Auto) 0.0 Assessment and Plan (1) GERD (gastroesophageal reflux disease) Current visit: Yes Status: Acute Qualifiers: Esophagitis presence: esophagitis presence not specified Qualified Code(s): K21.9 - Gastro-esophageal reflux disease without esophagitis Category: Medical Code(s): K21.9 - Gastro-esophageal reflux disease without esophagitis (2) Leukocytosis Current visit: Yes Status: Acute Qualifiers: Leukocytosis type: unspecified Qualified Code(s): D72.829 - Elevated white blood cell count, unspecified Category: Medical Code(s): D72.829 - Elevated white blood cell count, unspecified (3) Hypertension Current visit: Yes Status: Chronic Qualifiers: Hypertension type: essential hypertension Qualified Code(s): I10 - Essential (primary) hypertension Category: Medical Code(s): I10 - Essential (primary) hypertension (4) Abdominal pain Current visit: Yes Status: Acute Qualifiers: Abdominal location: generalized Qualified Code(s): R10.84 - Generalized abdominal pain Category: Medical Code(s): R10.9 - Unspecified abdominal pain (5) Kyphoscoliosis Current visit: No Status: Chronic Category: Medical Code(s): M41.9 - Scoliosis, unspecified - Assessment and plan all Dx Assessment and Plan for all problems:: At this point the patient is comfortable and not complaining of abdominal pain and resting. Unclear etiology. I discussed the potential etiologies with the patient and family. I do feel it may be beneficial to proceed with CT scan with contrast to better evaluate the alimentary tract and mesenteric vasculature.
--- NOTE | 2018-10-12 07:30 | Pharmacy Consult Notes ---
[facility] Pharmacy VTE Monitoring - Patient Demographics Admission date: 10/11/18 Report Date: 10/12/18 Time: 07:30 Allergies/Adverse Reactions: Patient Allergies levofloxacin [From LEVAQUIN] Allergy (Unknown, Verified 11/25/17 17:35) Penicillins [PENICILLINS] Allergy (Unknown, Verified 11/25/17 17:35) Sulfa (Sulfonamide Antibiotics) [SULFA (SULFONAMIDE ANTIBIOTICS)] Allergy (Unknown, Verified 11/25/17 17:35) Height: 1.68 m Weight: 56.472 kg Patient Problems: Current Active Problems Abdominal pain (Acute) GERD (gastroesophageal reflux disease) (Acute) Leukocytosis (Acute) Hypertension (Chronic) - VTE Risk Labs: VTE Related Lab Results Hgb 10.6 g/dL (12.2-16.2) L D 10/12/18 05:23 Hct 32.8 % (37.0-47.0) L 10/12/18 05:23 Plt Count 275 K/mm3 (142-424) 10/12/18 05:23 BUN 18 mg/dL (7-18) 10/11/18 11:10 Creatinine 1.09 mg/dL (0.55-1.02) H 10/11/18 11:10 Estimated Creat Clear 37 mL/min (50-200) 10/11/18 11:10 Was VTE Risk Assessment Performed: No VTE Score: 1 VTE Risk Level: Very Low Risk - Prophylaxis VTE Prophylaxis Ordered?: Yes Types of VTE Prophylaxis: TEDS Knee High Location of Applied Device: Bilateral Lower Extremeties - VTE Diagnosis Confirmed Treatment or plan recommended: Continue Current Treatment
--- NOTE | 2018-10-12 07:41 | Progress Note ---
Internal Medicine - PN: Subj *Date: 10/12/18 *Time: 07:40 Interval history: Patient feels much better today, tolerating clear liquids. Continues to have some episodes of minimal abdominal pain. Exam Vital signs and Labs for Last 24 Hours: Temp Pulse Resp BP Pulse Ox 98.3 F 85 18 111/60 93 L 10/12/18 03:52 10/12/18 03:52 10/12/18 03:52 10/12/18 03:52 10/12/18 03:52 Laboratory Results - last 24 hr 10/11/18 11:10: Urine Color Yellow, Urine Appearance Clear, Urine pH 7.5, Ur Specific [place] 1.010, Urine Protein Negative, Urine Glucose (UA) Negative, Urine Ketones Negative, Urine Blood 2+, Urine Nitrate Negative, Urine Bilirubin Negative, Urine Urobilinogen 1.0, Ur Leukocyte Esterase Negative, Urine RBC 5- 10, Urine WBC 3-5, Ur Squamous Epith Cells 5-10, Urine Bacteria 3+ 10/11/18 11:10: Stool Occult Blood Negative 10/11/18 11:10: WBC 30.0 H* D, RBC 4.29, Hgb 12.9, Hct 39.5, MCV 92.0, MCH 30.1, MCHC 32.7, RDW 13.4, Plt Count 348, MPV 7.1 L, Neut % (Auto) 91.5 H, Lymph % (Auto) 3.7 L, [place] % (Auto) 4.6, Eos % (Auto) 0.1, Baso % (Auto) 0.1, Neut # (Auto) 27.4 H, Lymph # (Auto) 1.1, [place] # (Auto) 1.4 H, Eos # (Auto) 0.0, Baso # (Auto) 0.0, Total Counted 100, Neutrophils % (Manual) 69, Band Neutrophils % 21.0 H, Lymphocytes % (Manual) 4 L, Atypical Lymphs % 1.0, Monocytes % (Manual) 5, Platelet Estimate Normal, RBC Morphology Normal 10/11/18 11:10: Sodium 138, Potassium 4.4, Chloride 100, Carbon Dioxide 31, Anion Gap 11.4, BUN 18, Creatinine 1.09 H, Estimated Creat Clear 37, Estimated GFR 49 L, Est GFR ( Amer) 59, Glucose 136 H, Calcium 9.1, Total Bilirubin 1.3 H, AST 51 H, ALT 62, Alkaline Phosphatase 116, Total Protein 6.7, Albumin 2.9 L, Globulin 3.8 H, Albumin/Globulin Ratio 0.8 L, Amylase 53, Lipase 76 10/11/18 11:10: Lactate 2.0 10/12/18 05:23: WBC 14.2 H D, RBC 3.52 L, Hgb 10.6 L D, Hct 32.8 L, MCV 93.2, MCH 30.0, MCHC 32.2, RDW 13.5, Plt Count 275, MPV 6.7 L, Neut % (Auto) 80.0, Lymph % (Auto) 12.8, [place] % (Auto) 5.8, Eos % (Auto) 1.2, Baso % (Auto) 0.2, Neut # (Auto) 11.4 H, Lymph # (Auto) 1.8, [place] # (Auto) 0.8, Eos # (Auto) 0.2, Baso # (Auto) 0.0 10/12/18 05:23: Sodium 140, Potassium 4.2, Chloride 107, Carbon Dioxide 29, BUN 12 D, Creatinine 0.88, Glucose 83 D, Calcium 8.0 L D, Magnesium 2.0, Total Bilirubin 1.0, AST 28 D, ALT 47, Alkaline Phosphatase 98, C-Reactive Protein 13.0 H, Total Protein 5.3 L, Albumin 2.3 L D I & O for Last 24 hours: Intake & Output 10/09/18 10/10/18 10/11/18 10/12/18 11:59 11:59 11:59 11:59 Intake Total 3008 / 3008 Output Total 350 / 350 Balance 2658 / 2658 Weight 120 lb 124 lb 8 oz Narrative: Abdomen soft, nontender. Lungs clear, heart rate regular, oropharynx clear, no JVD. Neurologic exam intact, skin warm and well-perfused. Assessment and Plan (1) GERD (gastroesophageal reflux disease) Current visit: Yes Status: Acute Qualifiers: Esophagitis presence: esophagitis presence not specified Qualified Code(s): K21.9 - Gastro-esophageal reflux disease without esophagitis Category: Medical Code(s): K21.9 - Gastro-esophageal reflux disease without esophagitis (2) Leukocytosis Current visit: Yes Status: Acute Qualifiers: Leukocytosis type: unspecified Qualified Code(s): D72.829 - Elevated white blood cell count, unspecified Category: Medical Code(s): D72.829 - Elevated white blood cell count, u nspecified (3) Hypertension Current visit: Yes Status: Chronic Qualifiers: Hypertension type: essential hypertension Qualified Code(s): I10 - Essential (primary) hypertension Category: Medical Code(s): I10 - Essential (primary) hypertension (4) Abdominal pain Current visit: Yes Status: Acute Qualifiers: Abdominal location: generalized Qualified Code(s): R10.84 - Generalized abdominal pain Category: Medical Code(s): R10.9 - Unspecified abdominal pain (5) Kyphoscoliosis Current visit: No Status: Chronic Category: Medical Code(s): M41.9 - Scoliosis, unspecified - Assessment and plan all Dx Assessment and Plan for all problems:: Leukocytosis better. Anemia secondary to dilutional fluid administration. CT scan with contrast to rule out mesenteric adenitis, possible discharge this afternoon.
[2018-10-13 06:36] LABS: Albumin Level 2.7 gm/dL (3.4-5.0); Albumin/Globulin Ratio 0.8 (1.1-1.8); Calcium 8.3 mg/dL (8.5-10.1); Globulin 3.3 gm/dl (1.3-3.2)
[2018-10-13 07:12] LABS: Anion Gap 6.3 mEq/L (5-15)
[2018-10-13 07:32] LABS: Basophils % 0.1 % (0.1-2.0); Eosinophils % 0.2 % (0.1-12.0); Hematocrit 34.4 % (37.0-47.0); Hemoglobin 11.1 g/dL (12.2-16.2); Lymphocytes # 1.6 K/mm3 (0.7-4.5); Lymphocytes % 9.3 % (10-50); Mean Corpuscular HGB Conc 32.2 g/dL (31.8-35.4); Mean Corpuscular Volume 92.7 fl (81-99); Mean Platelet Volume 6.8 fl (7.4-10.4); Monocytes # 1.1 K/mm3 (0.1-1.0); Monocytes % 6.3 % (1.7-9.3); Neutrophils # 14.1 K/mm3 (1.8-7.8); Platelet Count 336 K/mm3 (142-424); Red Blood Count 3.71 M/mm3 (4.20-5.40); Red Cell Distribution Width 13.5 % (11.5-17.5); White Blood Count 16.7 K/mm3 (4.8-10.8)
--- NOTE | 2018-10-13 08:59 | Progress Note ---
Internal Medicine - PN: Subj *Date: 10/13/18 *Time: 08:59 Exam Vital signs and Labs for Last 24 Hours: Temp Pulse Resp BP Pulse Ox 98.5 F 94 H 16 143/89 H 98 10/13/18 08:00 10/13/18 08:00 10/13/18 08:00 10/13/18 08:00 10/13/18 08:00 Laboratory Results - last 24 hr 10/13/18 05:32: WBC 16.7 H, RBC 3.71 L, Hgb 11.1 L, Hct 34.4 L, MCV 92.7, MCH 29.9, MCHC 32.2, RDW 13.5, Plt Count 336, MPV 6.8 L, Neut % (Auto) 84.0 H, Lymph % (Auto) 9.3 L, Sandoval % (Auto) 6.3, Eos % (Auto) 0.2, Baso % (Auto) 0.1, Neut # (Auto) 14.1 H, Lymph # (Auto) 1.6, Sand[place] # (Auto) 1.1 H, Eos # (Auto) 0.0, Baso # (Auto) 0.0 10/13/18 05:32: Sodium 131 L, Potassium 3.3 L D, Chloride 97 L, Carbon Dioxide 31, Anion Gap 6.3, BUN 10, Creatinine 0.76, Estimated Creat Clear 42, Estimated GFR 74, Est GFR ( Amer) 89, Glucose 91, Calcium 8.3 L, Total Bilirubin 1.0, AST 19 D, ALT 41, Alkaline Phosphatase 104, Total Protein 6.0 L, Albumin 2.7 L D, Globulin 3.3 H, Albumin/Globulin Ratio 0.8 L I & O for Last 24 hours: Intake & Output 10/10/18 10/11/18 10/12/18 10/13/18 23:59 23:59 23:59 23:59 Intake Total 1600 / 1600 2253 / 2253 1217 / 1217 Output Total 350 / 350 Balance 1250 / 1250 2253 / 2253 1217 / 1217 Weight 56.274 kg 56.472 kg 56.387 kg Microbiology Reports for the Last 24 Hours: Microbiology 10/11/18 11:10 Urine,Clean Catch Urine Culture - Preliminary NO GROWTH AFTER 24 HOURS Assessment and Plan (1) GERD (gastroesophageal reflux disease) Current visit: Yes Status: Acute Qualifiers: Esophagitis presence: esophagitis presence not specified Qualified Code(s): K21.9 - Gastro-esophageal reflux disease without esophagitis Category: Medical Code(s): K21.9 - Gastro-esophageal reflux disease without esophagitis (2) Leukocytosis Current visit: Yes Status: Acute Qualifiers: Leukocytosis type: unspecified Qualified Code(s): D72.829 - Elevated white blood cell count, unspecified Category: Medical Code(s): D72.829 - Elevated white blood cell count, unspecified (3) Hypertension Current visit: Yes Status: Chronic Qualifiers: Hypertension type: essential hypertension Qualified Code(s): I10 - Essential (primary) hypertension Category: Medical Code(s): I10 - Essential (primary) hypertension (4) Abdominal pain Current visit: Yes Status: Acute Qualifiers: Abdominal location: generalized Qualified Code(s): R10.84 - Generalized abdominal pain Category: Medical Code(s): R10.9 - Unspecified abdominal pain (5) Kyphoscoliosis Current visit: No Status: Chronic Category: Medical Code(s): M41.9 - Scoliosis, unspecified
[2018-10-13 10:17] LABS: Lymphocytes % 8 % (10-50); Monocytes % 4 % (2-9); Neutrophils % 88 % (42-76); Total Cells Counted 100
[2018-10-13 10:22] LABS: RBC Morphology Normal
--- NOTE | 2018-10-13 18:08 | Discharge Summary ---
General - General Admission date:: 10/11/18 Discharge date: 10/13/18 HPI HPI: Ms. Armstrong is a 78-year-old female who presents with acute worsening of abdominal pain. She came to the ER today due to the combination of symptoms including nausea, severe abdominal pain, and generalized worsening feeling over the past week. She reports that for the past 2 weeks she has had some intermittent abdominal pain with acute change a week ago when she had several loose watery bowel movements in 1 day. She took Imodium which resolved her diarrhea but then reports over the course of the week she has had progressive worsening of crampy acute onset pain it is at 9-10 out of 10. Pain will resolve on its own with Tylenol or flurbiprofen. Has been trying to have bowel movements daily and using enemas and suppositories with minimal benefit. Has not tried any stool softeners or medications from above. Did state as well over the past week she has had worsening heartburn type symptoms and started taking Tums 6 to 8 tablets daily for the past week which gave her concern that she is caused herself a problem. She presented on the for similar symptoms at which time blood cultures were obtained, CT was obtained, urine culture was obtained, and lab work was performed. The only remarkable findings at that time were a white cell count of 19,000 and incidental findings of nephrolithiasis. CT of the abdomen was otherwise unremarkable with appreciation of diffuse diverticulosis but no signs of inflammation or stranding. Additionally her kidney function and electrolytes were normal. On repeat work-up today patient has a worsening white cell count of 30,000, elevated CRP, but otherwise unremarkable labs. No imaging done in the ER today however. She has not had antibiotics over the past week. Did have some steroids over a week ago. Geo goel was admitted to medicine for further management and work-up. On assessment after patient got to the floor, patient is sitting in bedside chair comfortable with normal vitals. No acute distress on room air. Complaining of no abdominal pain at this time. She is accompanied by her son and daughter who are very aggressive advocates for her care, additionally she has a second daughter who is a nurse in [employer] [facility] who is sending suggestions via text. Family is very concerned for her status given the white cell count elevation and severe abdominal pain, however on initial assessment, patient is appropriate and in no acute discomfort after having received only IV fluids and morphine. Denies headache, chest pain, nausea, vomiting, complains of abdominal discomfort, constipation. No confusion or dizziness. No bleeding, no hematochezia, no hematemesis. Hospital Course Hospital Course: Ms. Armstrong was admitted to medicine for her abdominal pain and leukocytosis. Initiated on IV fluids with bowel rest at time of admission. Antibiotics held this patient had no other signs of infection aside from leukocytosis. KUB showed stool burden and some slight inflammation of her intestines consistent with a ileitis. During her hospitalization her abdominal pain was managed with a variety of medications. Her reflux was treated with a PPI. She was initiated on a bowel regimen to clean out her constipation. Stool sample was obtained showing E. coli. Antibiotics were held during the entire admission and her symptoms defervesced with the above treatments. Tolerating liquid diet with improvement in her symptoms on day of discharge. Medically stable for discharge home. Denies any nausea, chest pain, shortness of breath, fevers. Overall doing better. Plan to follow-up with her PCP within the coming week for reevaluation. Objective Vital signs: Temp Pulse Resp BP Pulse Ox 98.5 F 85 18 133/82 98 10/13/18 15:19 10/13/18 15:19 10/13/18 15:19 10/13/18 15:19 10/13/18 15:19 Narrative: - *Routine HEENT Exam Head: Present: normocephalic Eye: Present: EOMI, PERRL ENT: Present: mucous membranes moist - *Routine Neck Exam Present: supple. Absent: lymphadenopathy - *Routine Respiratory Exam Present: CTA bilaterally - *Routine Cardiovascular Exam Present: RRR - *Routine Abdominal Exam Present: soft, normoactive bowel sounds, resolved tenderness. Absent: distended, rebound, guarding, organomegaly - *Routine Extremities Exam Absent: cyanosis, clubbing, edema - Routine Back/Spine/Pelvis Exam Back/Spine: Absent: CVA tenderness, paraspinal tenderness Comments: Significant thoracic scoliosis with prominence of right side of back, well-healed midline scar along entire length of back from previous surgery, no rash. - *Routine Skin Exam Present: warm. Absent: erythema, rash - *Routine Neurological Exam Present: alert, oriented X3. Absent: altered mental status Results Labs on day of discharge: Labs from last 24 hours 10/13/18 10/13/18 10/13/18 09:08 05:32 05:32 WBC 16.7 H RBC 3.71 L Hgb 11.1 L Hct 34.4 L MCV 92.7 MCH 29.9 MCHC 32.2 RDW 13.5 Plt Count 336 MPV 6.8 L Neut % (Auto) 84.0 H Lymph % (Auto) 9.3 L [place] % (Auto) 6.3 Eos % (Auto) 0.2 Baso % (Auto) 0.1 Neut # (Auto) 14.1 H Lymph # (Auto) 1.6 [place] # (Auto) 1.1 H Eos # (Auto) 0.0 Baso # (Auto) 0.0 Total Counted 100 Neutrophils % (Manual) 88 H Lymphocytes % (Manual) 8 L Monocytes % (Manual) 4 Platelet Estimate Normal RBC Morphology Normal Sodium 131 L Potassium 3.3 L D Chloride 97 L Carbon Dioxide 31 Anion Gap 6.3 BUN 10 Creatinine 0.76 Estimated Creat Clear 42 Estimated GFR 74 Est GFR ( Amer) 89 Glucose 91 Calcium 8.3 L Total Bilirubin 1.0 AST 19 D ALT 41 Alkaline Phosphatase 104 Total Protein 6.0 L Albumin 2.7 L D Globulin 3.3 H Albumin/Globulin Ratio 0.8 L Stl Aeromonas (PCR) Not detected Stl C. cayetanensis PCR Not detected Stool Rotavirus (PCR) Not detected Stl Adenov F 40/41 PCR Not detected Stool Astrovirus (PCR) Not detected Stool Campylobacter PCR Not detected Stl C.difficile Tox PCR Not detected Stool Cryptosporidium PCR Not detected Stl E.coli Shiga Tox PCR Not detected Stool E coli O157 PCR Not detected Stl Enterotoxigenic E PCR Not detected Stool EPEC (PCR) Detected A Stool EAEC (PCR) Not detected Stl E. histolytica PCR Not detected Stool Giardia Lamblia PCR Not detected Stool Salmonella PCR Not detected Stool Sapovirus (PCR) Not detected Stl P. shigelloides PCR Not detected Stl Shigella/EIEC PCR Not detected St Y.enterocolitica PCR Not detected Stool Vibrio (PCR) Not detected Stl Vibrio cholerae PCR Not detected Stl Norovirus GI/GII PCR Not detected DS: Diagnosis - Discharge Diagnosis (1) GERD (gastroesophageal reflux disease) Status: Acute (2) Leukocytosis Status: Acute (3) Hypertension Status: Chronic (4) Abdominal pain Status: Acute (5) Kyphoscoliosis Status: Chronic (6) E. coli gastroenteritis Status: Acute Discharge Plan - Patient Discharge Instructions ACTIVITY: Continue current activity DIET: advance to your usual diet Patient Instructions: DI for Gastroesophageal Reflux Disease (GERD), DI for Abdominal Pain-Adult, DI for Constipation - Follow up Plan Follow up with: Giovany Grubbs [Primary Care Provider] - Disposition: Home, Self-Skilled Nursing Medications: Home Medications Medication Instructions Recorded Confirmed Type ALPRAZolam [Alprazolam 0.25mg 0.25 mg PO HS 03/01/18 10/12/18 History Tab] Irbesartan [Irbesartan 75mg Tablet] 75 mg PO DAILY 03/01/18 10/12/18 History Rosuvastatin Calcium 5 mg PO DAILY 03/01/18 10/12/18 History Estrogens,Esterified [Menest] 0.313 mg PO HS 10/12/18 10/12/18 History Dicyclomine HCl [Bentyl 10mg 10 mg PO TIDP PRN 30 Days #60 cap 10/13/18 Rx capsule] Omeprazole [Omeprazole 20mg 20 mg PO DAILY 30 Days #30 cap 10/13/18 Rx Capsule] Prescriptions/Medication Reconciliation: New Dicyclomine HCl [Bentyl 10mg capsule] 10 mg PO TIDP PRN 30 Days #60 cap PRN Reason: Moderate Pain Omeprazole [Omeprazole 20mg Capsule] 20 mg PO DAILY 30 Days #30 cap Continued Rosuvastatin Calcium 5 mg PO DAILY Irbesartan [Irbesartan 75mg Tablet] 75 mg PO DAILY ALPRAZolam [Alprazolam 0.25mg Tab] 0.25 mg PO HS Estrogens,Esterified [Menest] 0.313 mg PO HS - Problem Reconciliation Problems Reviewed?: Yes
== END 2018-10-13 18:40 | disposition home or self-care (01) ==
LOC: ER 10:46 → 2ND 10:46
PROVIDERS: ADMIT Internal Medicine Adolescent Medicine; ATTEND Internal Medicine Adolescent Medicine
CPT/HCPCS: 36415; 74021; 74022; 74177; 80053; 81001; 82150; 82272; 83605; 83690; 83735; 85007; 85025; 86140; 87045; 87086; 87507; 96365; 96375; 99284; G0328; G0378; J2405; Q9967

== ENCOUNTER → 2018-10-16 14:29 | Outpatient (CLI) | payer MEDICARE, OTHER, SELFPAY ==
[2018-10-16 15:27] LABS: Basophils % 0.3 % (0.1-2.0); Eosinophils # 0.2 K/mm3 (0.0-0.4); Eosinophils % 2.1 % (0.1-12.0); Hemoglobin 12.5 g/dL (12.2-16.2); Lymphocytes # 1.6 K/mm3 (0.7-4.5); Lymphocytes % 19.5 % (10-50); Mean Corpuscular HGB Conc 32.1 g/dL (31.8-35.4); Mean Corpuscular Hemoglobin 29.8 pg (27.0-31.2); Mean Corpuscular Volume 92.7 fl (81-99); Mean Platelet Volume 6.3 fl (7.4-10.4); Monocytes # 0.4 K/mm3 (0.1-1.0); Neutrophils % 73.2 % (37.0-80.0); Platelet Count 398 K/mm3 (142-424); Red Blood Count 4.21 M/mm3 (4.20-5.40); Red Cell Distribution Width 13.5 % (11.5-17.5); White Blood Count 8.2 K/mm3 (4.8-10.8)
[2018-10-16 16:01] LABS: Anion Gap 14.6 mEq/L (5-15); Blood Urea Nitrogen 6 mg/dL (7-18); Calcium 8.9 mg/dL (8.5-10.1); Carbon Dioxide 28 mmol/L (21.0-32.0); Chloride 105 mmol/L (98-107); Creatinine,Serum 0.61 mg/dL (0.55-1.02); Estimated Glomerular Filt Rate 95 ml/min (>60); GFR (African American) 115 ML/MIN (>60); Glucose 92 mg/dL (74-106); Potassium 4.6 mmoL/L (3.5-5.1); Sodium 143 mmol/L (136-145)
== END ==
PROVIDERS: Visit Provider Internal Medicine
DX: K29.90 Gastroduodenitis, unspecified, without bleeding (principal); B96.20 Unspecified Escherichia coli [E. coli] as the cause of diseases classified elsewhere
CPT/HCPCS: 36415; 80048; 85025

== ENCOUNTER → 2018-10-29 15:03 | Outpatient (CLI) | payer MEDICARE, OTHER, SELFPAY ==
--- NOTE | 2018-10-29 15:05 | MR_ITS ---
PROCEDURE: MR LUMBAR SPINE WO CON CLINICAL INDICATION: LOW BACK PAIN, MID BACK PAIN, NEURALGIA COMPARISON: [id number] CT abdomen pelvis w con from 10/12/2018 TECHNIQUE: Standard multiplanar multiecho sequences are performed without contrast. 3-D MIP and myelographic images are also rendered and reviewed FINDINGS: Lower thoracic scoliosis convex right. Lumbar scoliosis convex left 29 degrees. Multilevel degenerative disc disease. There is a rotary component of the scoliosis in a clockwise fashion. T12-L1: Mild degenerative disc disease. L1-L2: Degenerate disc disease with decrease in the disc space. L2-L3: Degenerate disc disease with decrease in the disc space with bony hypertrophy of the facets on the right at that level. L3-L4: Decrease in the disc space consistent with degenerative disc disease and facet hypertrophic change on the right. L4-5: Degenerate disc disease with bulging disc. There is some endplate sclerosis. Moderate facet ligamentum hypertrophy is present with moderate to severe bilateral lateral recess narrowing. Severe right foraminal narrowing and moderate to severe left foraminal narrowing. There is transverse narrowing of the canal. L5-S1: Degenerate disc disease with bulging disc with moderate facet and ligamentum hypertrophy with moderate bilateral lateral recess narrowing and severe right-sided foraminal narrowing and moderate to severe left-sided foraminal narrowing. It appears that there has been prior fusion of the posterior elements on the posteriorly and on the right in the lower thoracic spine and lumbar spine to L3 No extruded herniated disc. Incidental note made of mild prominence of the renal pelvicaliceal system on both sides right greater than left IMPRESSION: 1. Levoscoliosis with multilevel degenerative changes as detailed above. Please see above for detailed description. 2. L4-5: Degenerate disc disease with bulging disc. There is some endplate sclerosis. Moderate facet ligamentum hypertrophy is present with moderate to severe bilateral lateral recess narrowing. Severe right foraminal narrowing and moderate to severe left foraminal narrowing. There is transverse narrowing of the canal. 3. L5-S1: Degenerate disc disease with bulging disc with moderate facet and ligamentum hypertrophy with moderate bilateral lateral recess narrowing and severe right-sided foraminal narrowing and moderate to severe left-sided foraminal narrowing 4. Fusion posteriorly and on the right for involving the lower thoracic and lumbar spine through the L3 level. Please correlate with patient's surgical history Dictated by: Migue Antonio MD 10/31/2018 14:09 Signed by: <Electronically signed by Migue Antonio MD in [facility]> 10/31/2018 14:09
--- NOTE | 2018-10-29 15:06 | MR_ITS ---
PROCEDURE: MR THORACIC SPINE WO CON CLINICAL INDICATION: LOW BACK PAIN, MID BACK PAIN, NEURALGIA COMPARISON: from 09/28/2018 from 09/28/2018 TECHNIQUE: Routine multiplanar multi echo sequences are performed without contrast FINDINGS: There is severe thoracic scoliosis convex right measuring 53 degrees. The severe scoliosis makes imaging and interpretation difficult. No acute fracture or dislocation is evident. There is mild multilevel decrease in the disc spaces but no evidence of disc herniation or acute fracture. No canal stenosis. There is minimal anterolisthesis of T2 on T3 of 2-3 mm. There is apparent bony bridging of the posterior elements centrally and on the right in may be due to prior surgery or fusion. IMPRESSION: Severe dextroscoliosis. No canal stenosis fracture or other acute anomaly Dictated by: Migue Antonio MD 10/31/2018 15:01 Signed by: <Electronically signed by Migue Antonio MD in [facility]> 10/31/2018 15:01
== END ==
PROVIDERS: PCP Internal Medicine; Visit Provider Internal Medicine
DX: M54.6 Pain in thoracic spine (principal); M54.5 Low back pain
CPT/HCPCS: 72146; 72148; 76376

== ENCOUNTER → 2018-11-27 09:19 | Outpatient (CLI) | payer MEDICARE, OTHER, SELFPAY ==
[2018-11-27 10:03] LABS: Basophils % 0.5 % (0.1-2.0); Eosinophils # 0.2 K/mm3 (0.0-0.4); Eosinophils % 2.9 % (0.1-12.0); Hematocrit 42.9 % (37.0-47.0); Hemoglobin 12.8 g/dL (12.2-16.2); Lymphocytes # 1.8 K/mm3 (0.7-4.5); Lymphocytes % 23.5 % (10-50); Mean Corpuscular HGB Conc 29.8 g/dL (31.8-35.4); Mean Corpuscular Hemoglobin 28.8 pg (27.0-31.2); Mean Corpuscular Volume 96.7 fl (81-99); Mean Platelet Volume 7.6 fl (7.4-10.4); Monocytes # 0.5 K/mm3 (0.1-1.0); Monocytes % 5.9 % (1.7-9.3); Neutrophils # 5.2 K/mm3 (1.8-7.8); Neutrophils % 67.2 % (37.0-80.0); Platelet Count 319 K/mm3 (142-424); Red Blood Count 4.43 M/mm3 (4.20-5.40); Red Cell Distribution Width 14.3 % (11.5-17.5); White Blood Count 7.8 K/mm3 (4.8-10.8)
[2018-11-27 11:43] LABS: Alanine Aminotransferase 12 U/L (12-78); Albumin Level 3.8 gm/dL (3.4-5.0); Albumin/Globulin Ratio 1.2 (1.1-1.8); Alkaline Phosphatase 85 U/L (46-116); Anion Gap 12.7 mEq/L (5-15); Aspartate Amino Transferase 18 U/L (15-37); Bilirubin,Total 1.2 mg/dL (0.2-1.0); Blood Urea Nitrogen 19 mg/dL (7-18); Calcium 9.6 mg/dL (8.5-10.1); Carbon Dioxide 30 mmol/L (21.0-32.0); Chloride 104 mmol/L (98-107); Chol/HDL Ratio 2.3 (1-3.5); Cholesterol 169 mg/dL (140-200); Creatinine,Serum 0.67 mg/dL (0.55-1.02); Estimated Glomerular Filt Rate 85 ml/min (>60); GFR (African American) 103 ML/MIN (>60); Globulin 3.2 gm/dl (1.3-3.2); Glucose 87 mg/dL (74-106); HDL Cholesterol 75 mg/dL (29-89); LDL Cholesterol 80 mg/dL (0-130); Potassium 4.7 mmoL/L (3.5-5.1); Sodium 142 mmol/L (136-145); Triglycerides 72 mg/dL (30-200); VLDL Cholesterol 14 mg/dL (0-40)
== END ==
PROVIDERS: Visit Provider Internal Medicine
DX: I10 Essential (primary) hypertension (principal); E78.5 Hyperlipidemia, unspecified
CPT/HCPCS: 36415; 80053; 80061; 85025

== ENCOUNTER → 2019-07-29 10:11 | Outpatient (CLI) | payer MEDICARE, OTHER, SELFPAY ==
[2019-07-29 10:51] LABS: Basophils % 0.6 % (0.1-2.0); Eosinophils # 0.2 K/mm3 (0.0-0.4); Eosinophils % 2.3 % (0.1-12.0); Hemoglobin 14.5 g/dL (12.2-16.2); Lymphocytes # 1.4 K/mm3 (0.7-4.5); Lymphocytes % 20.7 % (10-50); Mean Corpuscular HGB Conc 33.7 g/dL (31.8-35.4); Mean Corpuscular Hemoglobin 31.3 pg (27.0-31.2); Mean Corpuscular Volume 92.9 fl (81-99); Mean Platelet Volume 7.6 fl (7.4-10.4); Monocytes # 0.4 K/mm3 (0.1-1.0); Monocytes % 5.7 % (1.7-9.3); Neutrophils % 70.6 % (37.0-80.0); Platelet Count 282 K/mm3 (142-424); Red Blood Count 4.63 M/mm3 (4.20-5.40); Red Cell Distribution Width 13.2 % (11.5-17.5)
[2019-07-29 11:32] LABS: Chloride 102 mmol/L (98-107); Potassium 4.6 mmoL/L (3.5-5.1); Sodium 139 mmol/L (136-145)
[2019-07-29 11:35] LABS: Alanine Aminotransferase 13 U/L (12-78); Albumin Level 4.4 g/dl (3.5-5.0); Albumin/Globulin Ratio 1.6 (1.1-1.8); Alkaline Phosphatase 73 U/L (38-126); Anion Gap 9.6 mEq/L (5-15); Aspartate Amino Transferase 30 U/L (14-36); Bilirubin,Total 1.3 mg/dl (0.2-1.3); Blood Urea Nitrogen 18 mg/dl (7-17); Calcium 9.7 mg/dl (8.4-10.2); Carbon Dioxide 32 mmol/L (22.0-30.0); Chol/HDL Ratio 1.9 (1-3.5); Cholesterol 164 mg/dl (140-200); Estimated Glomerular Filt Rate 81 ml/min (>60); GFR (African American) 98 ML/MIN (>60); Globulin 2.7 g/dL (1.3-3.2); Glucose 89 mg/dl (74-100); HDL Cholesterol 86 mg/dl (40-60); Total Protein,Serum 7.1 g/dl (6.3-8.2); Triglycerides 75 mg/dl (30-150); VLDL Cholesterol 15 mg/dL (0-40)
[2019-07-29 11:46] LABS: Direct LDL Cholesterol 80.05 mg/dL (100-129)
[2019-07-30 20:33] LABS: Vitamin D 25 Hydroxy 50.8 ng/mL (30.0-100.0)
== END ==
PROVIDERS: Visit Provider Internal Medicine
DX: I10 Essential (primary) hypertension (principal); E78.5 Hyperlipidemia, unspecified; E55.9 Vitamin D deficiency, unspecified; M15.0 Primary generalized (osteo)arthritis; M81.0 Age-related osteoporosis without current pathological fracture
CPT/HCPCS: 36415; 80053; 80061; 82652; 85025

== ENCOUNTER → 2019-11-16 15:06 | Outpatient (POV) | payer MEDICARE, OTHER, SELFPAY | PROVIDERS: Visit Provider Dermatology | DX: Z00.00 Encounter for general adult medical examination without abnormal findings (principal) ==

== ENCOUNTER → 2020-01-11 10:20 | Outpatient (CLI) | payer MEDICARE, OTHER, SELFPAY ==
[2020-01-11 11:05] LABS: Alanine Aminotransferase 14 U/L (12-78); Albumin Level 4.4 g/dl (3.5-5.0); Albumin/Globulin Ratio 1.6 (1.1-1.8); Alkaline Phosphatase 90 U/L (38-126); Anion Gap 13.3 mEq/L (5-15); Aspartate Amino Transferase 28 U/L (14-36); Bilirubin,Total 1.5 mg/dl (0.2-1.3); Blood Urea Nitrogen 18 mg/dl (7-17); Calcium 10.1 mg/dl (8.4-10.2); Carbon Dioxide 32 mmol/L (22.0-30.0); Chloride 100 mmol/L (98-107); Chol/HDL Ratio 2.1 (1-3.5); Cholesterol 180 mg/dl (140-200); Estimated Glomerular Filt Rate 81 ml/min (>60); GFR (African American) 98 ML/MIN (>60); Globulin 2.8 g/dL (1.3-3.2); Glucose 100 mg/dl (74-100); HDL Cholesterol 86 mg/dl (40-60); Potassium 4.3 mmoL/L (3.5-5.1); Sodium 141 mmol/L (136-145); Total Protein,Serum 7.2 g/dl (6.3-8.2); Triglycerides 91 mg/dl (30-150); VLDL Cholesterol 18 mg/dL (0-40)
[2020-01-11 11:16] LABS: Direct LDL Cholesterol 77.38 mg/dL (100-129)
[2020-01-11 11:21] LABS: 25-OH Vitamin D, Total 44.8 ng/mL (30-100)
== END ==
PROVIDERS: Visit Provider Internal Medicine
DX: I10 Essential (primary) hypertension (principal); E78.5 Hyperlipidemia, unspecified; E55.9 Vitamin D deficiency, unspecified
CPT/HCPCS: 36415; 80053; 80061; 82306

== ENCOUNTER → 2020-07-14 08:23 | Outpatient (CLI) | payer MEDICARE, SELFPAY ==
[2020-07-14 08:53] LABS: Basophils % 0.4 % (0.1-2.0); Eosinophils # 0.2 K/mm3 (0.0-0.4); Eosinophils % 3.6 % (0.1-12.0); Hematocrit 42.1 % (37.0-47.0); Hemoglobin 13.7 g/dL (12.2-16.2); Lymphocytes # 1.5 K/mm3 (0.7-4.5); Lymphocytes % 22.7 % (10-50); Mean Corpuscular HGB Conc 32.7 g/dL (31.8-35.4); Mean Platelet Volume 8.4 fl (7.4-10.4); Monocytes # 0.4 K/mm3 (0.1-1.0); Monocytes % 5.7 % (1.7-9.3); Neutrophils # 4.5 K/mm3 (1.8-7.8); Neutrophils % 67.6 % (37.0-80.0); Platelet Count 289 K/mm3 (142-424); Red Blood Count 4.57 M/mm3 (4.20-5.40); Red Cell Distribution Width 13.5 % (11.5-17.5); White Blood Count 6.7 K/mm3 (4.8-10.8)
[2020-07-14 09:26] LABS: Chloride 103 mmol/L (98-107)
[2020-07-14 09:27] LABS: Potassium 4.3 mmoL/L (3.5-5.1); Sodium 141 mmol/L (136-145)
[2020-07-14 09:29] LABS: Alanine Aminotransferase 14 U/L (12-78); Alkaline Phosphatase 76 U/L (38-126); Aspartate Amino Transferase 28 U/L (14-36); Bilirubin,Total 1.2 mg/dl (0.2-1.3); Blood Urea Nitrogen 20 mg/dl (7-17); Estimated Glomerular Filt Rate 81 ml/min (>60); GFR (African American) 98 ML/MIN (>60)
[2020-07-14 09:30] LABS: Albumin Level 4.5 g/dl (3.5-5.0); Albumin/Globulin Ratio 1.9 (1.1-1.8); Anion Gap 10.3 mEq/L (5-15); Carbon Dioxide 32 mmol/L (22.0-30.0); Chol/HDL Ratio 2.2 (1-3.5); Cholesterol 175 mg/dl (140-200); Globulin 2.4 g/dL (1.3-3.2); Glucose 89 mg/dl (74-100); HDL Cholesterol 81 mg/dl (40-60); Total Protein,Serum 6.9 g/dl (6.3-8.2); Triglycerides 74 mg/dl (30-150); VLDL Cholesterol 15 mg/dL (0-40)
[2020-07-14 09:41] LABS: Direct LDL Cholesterol 68.43 mg/dL (100-129)
== END ==
PROVIDERS: Visit Provider Internal Medicine
DX: I10 Essential (primary) hypertension (principal); E78.5 Hyperlipidemia, unspecified; M15.0 Primary generalized (osteo)arthritis; M81.0 Age-related osteoporosis without current pathological fracture
CPT/HCPCS: 36415; 80053; 80061; 85025

== ENCOUNTER → 2020-07-24 08:52 | Outpatient (CLI) | payer MEDICARE, SELFPAY ==
--- NOTE | 2020-07-24 08:54 | US_ITS ---
PROCEDURE: US BREAST LT COMPLETE CLINICAL INDICATION: LT BREAST NODULE, UPPER MEDIAL COMPARISON: US BR US BREAST-RT COMPLETE W/AXILLA from 10/09/2015 FINDINGS: Ultrasound is performed of the palpable nodule in the 10 o'clock region of the left breast peripheral aspect. There is a 13 x 13 mm isoechoic nodule well-circumscribed with enhanced through transmission of sound. There is a small area of decreased echogenicity anteriorly and along the left aspect of this nodule. Evaluation of the remaining breast is performed. There is a 6 mm cyst at 12 o'clock near the nipple with some irregular margins. A 4 mm hypoechoic nodules present at 6 o'clock near the nipple. At 11 o'clock there is a 6 mm cyst. At 10 o'clock there is a 5 mm hypoechoic nodule probably due to small cyst. IMPRESSION: Well-circumscribed 13 mm isoechoic nodule in the peripheral aspect of the left breast at 10 o'clock. This could represent an epidermal inclusion cyst.. Please correlate with clinical parameters. Correlation with patient's recent mammogram performed at an outside institution is suggested. If this has developed since the previous exam or if this nodule is not included on the previous exam then diagnostic mammogram may provide further evaluation. Other etiologies are not excluded. Follow-up is suggested. Dictated by: Migeu Antonio MD 07/24/2020 09:57 Migue Antonio MD in [facility] 07/24/2020 09:57
== END ==
PROVIDERS: PCP Internal Medicine; Visit Provider Internal Medicine
DX: N63.25 Unspecified lump in the left breast, overlapping quadrants (principal)
CPT/HCPCS: 76641

== ENCOUNTER → 2020-12-15 10:50 | Outpatient (CLI) | payer MEDICARE, SELFPAY ==
--- NOTE | 2020-12-15 10:57 | XR_ITS ---
PROCEDURE: XR CHEST 2V CLINICAL HISTORY: PERSISTING COUGH/SPEUTUM COMPARISON: CR CXR CHEST(2 VIEWS-NOT PORTABLE) from 02/02/2014 CR CXR2V XR chest 2V from 11/25/2017 FINDINGS: The cardiomediastinal silhouette and pulmonary vascularity are within normal limits. The lungs are clear without infiltrates, suspicious nodules, or pleural effusions. Severe thoracic scoliosis convex right similar to the previous exam. IMPRESSION: No acute findings. Dictated by: Migue Antonio MD 12/15/2020 11:22 Migue Antonio MD in [place] 12/15/2020 11:22
== END ==
PROVIDERS: PCP Internal Medicine; Visit Provider Internal Medicine
DX: R05.8 Other specified cough (principal); R09.89 Other specified symptoms and signs involving the circulatory and respiratory systems
CPT/HCPCS: 71046

== ENCOUNTER → 2021-01-12 09:13 | Outpatient (CLI) | payer MEDICARE, SELFPAY ==
[2021-01-12 11:12] LABS: Alanine Aminotransferase 12 U/L (12-78); Albumin Level 4.1 g/dl (3.5-5.0); Albumin/Globulin Ratio 1.6 (1.1-1.8); Alkaline Phosphatase 75 U/L (38-126); Anion Gap 9.4 mEq/L (5-15); Aspartate Amino Transferase 26 U/L (14-36); Bilirubin,Total 1.1 mg/dl (0.2-1.3); Blood Urea Nitrogen 15 mg/dl (7-17); Calcium 9.6 mg/dl (8.4-10.2); Carbon Dioxide 32 mmol/L (22.0-30.0); Chloride 102 mmol/L (98-107); Chol/HDL Ratio 2.1 (1-3.5); Cholesterol 170 mg/dl (140-200); Estimated Glomerular Filt Rate 96 ml/min (>60); GFR (African American) 116 ML/MIN (>60); Globulin 2.5 g/dL (1.3-3.2); Glucose 88 mg/dl (74-100); HDL Cholesterol 81 mg/dl (40-60); Potassium 4.4 mmoL/L (3.5-5.1); Sodium 139 mmol/L (136-145); Total Protein,Serum 6.6 g/dl (6.3-8.2); Triglycerides 75 mg/dl (30-150); VLDL Cholesterol 15 mg/dL (0-40)
[2021-01-12 11:23] LABS: Direct LDL Cholesterol 71.82 mg/dL (100-129)
== END ==
PROVIDERS: Visit Provider Internal Medicine
DX: I10 Essential (primary) hypertension (principal); E78.5 Hyperlipidemia, unspecified; M15.0 Primary generalized (osteo)arthritis
CPT/HCPCS: 36415; 80053; 80061

== ENCOUNTER → 2021-07-24 10:00 | Outpatient (CLI) | payer MEDICARE, SELFPAY ==
[2021-07-24 10:36] LABS: Basophils # 0.1 K/mm3 (0-0.2); Basophils % 1.7 % (0.1-2.0); Eosinophils # 0.3 K/mm3 (0.0-0.4); Eosinophils % 4.3 % (0.1-12.0); Hematocrit 43.4 % (37.0-47.0); Hemoglobin 14.3 g/dL (12.2-16.2); Lymphocytes # 1.4 K/mm3 (0.7-4.5); Lymphocytes % 19.1 % (10-50); Mean Corpuscular HGB Conc 32.8 g/dL (31.8-35.4); Mean Corpuscular Hemoglobin 31.2 pg (27.0-31.2); Mean Platelet Volume 7.7 fl (7.4-10.4); Monocytes # 0.5 K/mm3 (0.1-1.0); Monocytes % 6.2 % (1.7-9.3); Neutrophils # 4.9 K/mm3 (1.8-7.8); Neutrophils % 68.6 % (37.0-80.0); Platelet Count 302 K/mm3 (142-424); Red Blood Count 4.57 M/mm3 (4.20-5.40); Red Cell Distribution Width 13.4 % (11.5-17.5); White Blood Count 7.2 K/mm3 (4.8-10.8)
[2021-07-24 10:49] LABS: Alanine Aminotransferase 36 U/L (12-78); Albumin Level 4.3 g/dl (3.5-5.0); Albumin/Globulin Ratio 1.7 (1.1-1.8); Alkaline Phosphatase 108 U/L (38-126); Anion Gap 11.9 mEq/L (5-15); Aspartate Amino Transferase 38 U/L (14-36); Bilirubin,Total 0.9 mg/dl (0.2-1.3); Blood Urea Nitrogen 21 mg/dl (7-17); Calcium 9.6 mg/dl (8.4-10.2); Carbon Dioxide 31 mmol/L (22.0-30.0); Chloride 102 mmol/L (98-107); Chol/HDL Ratio 2.4 (1-3.5); Cholesterol 181 mg/dl (140-200); Estimated Glomerular Filt Rate 96 ml/min (>60); GFR (African American) 116 ML/MIN (>60); Globulin 2.6 g/dL (1.3-3.2); Glucose 92 mg/dl (74-100); HDL Cholesterol 75 mg/dl (40-60); Potassium 3.9 mmoL/L (3.5-5.1); Sodium 141 mmol/L (136-145); Total Protein,Serum 6.9 g/dl (6.3-8.2); Triglycerides 80 mg/dl (30-150); VLDL Cholesterol 16 mg/dL (0-40)
[2021-07-24 11:00] LABS: Direct LDL Cholesterol 80.56 mg/dL (100-129)
== END ==
PROVIDERS: Visit Provider Internal Medicine
DX: I10 Essential (primary) hypertension (principal); E78.5 Hyperlipidemia, unspecified; K58.2 Mixed irritable bowel syndrome; M81.0 Age-related osteoporosis without current pathological fracture; M15.0 Primary generalized (osteo)arthritis
CPT/HCPCS: 36415; 80053; 80061; 85025

== ENCOUNTER → 2022-01-29 10:13 | Outpatient (CLI) | payer MEDICARE, SELFPAY ==
[2022-01-29 10:54] LABS: Basophils # 0.1 K/mm3 (0-0.2); Basophils % 0.8 % (0.1-2.0); Eosinophils # 0.2 K/mm3 (0.0-0.4); Eosinophils % 3.1 % (0.1-12.0); Hematocrit 45.3 % (37.0-47.0); Lymphocytes # 1.5 K/mm3 (0.7-4.5); Lymphocytes % 23.8 % (10-50); Mean Corpuscular Hemoglobin 29.9 pg (27.0-31.2); Mean Corpuscular Volume 96.4 fl (81-99); Mean Platelet Volume 7.9 fl (7.4-10.4); Monocytes # 0.3 K/mm3 (0.1-1.0); Monocytes % 5.4 % (1.7-9.3); Neutrophils # 4.1 K/mm3 (1.8-7.8); Neutrophils % 66.9 % (37.0-80.0); Platelet Count 280 K/mm3 (142-424); Red Cell Distribution Width 13.3 % (11.5-17.5); White Blood Count 6.1 K/mm3 (4.8-10.8)
[2022-01-29 11:10] LABS: Anion Gap 15.2 mEq/L (5-15); Blood Urea Nitrogen 20 mg/dl (7-17); Carbon Dioxide 33 mmol/L (22.0-30.0); Chloride 97 mmol/L (98-107); Estimated Glomerular Filt Rate 80 ml/min (>60); Potassium 4.2 mmoL/L (3.5-5.1); Sodium 141 mmol/L (136-145)
[2022-01-29 11:11] LABS: Alanine Aminotransferase 17 U/L (12-78); Albumin Level 4.2 g/dl (3.5-5.0); Albumin/Globulin Ratio 1.8 (1.1-1.8); Alkaline Phosphatase 103 U/L (38-126); Aspartate Amino Transferase 28 U/L (14-36); Bilirubin,Total 1.4 mg/dl (0.2-1.3); Calcium 9.8 mg/dl (8.4-10.2); Chol/HDL Ratio 2.6 (1-3.5); Cholesterol 155 mg/dl (140-200); GFR (African American) 97 ML/MIN (>60); Globulin 2.4 g/dL (1.3-3.2); Glucose 91 mg/dl (74-100); HDL Cholesterol 59 mg/dl (40-60); Total Protein,Serum 6.6 g/dl (6.3-8.2); Triglycerides 90 mg/dl (30-150); VLDL Cholesterol 18 mg/dL (0-40)
[2022-01-29 11:22] LABS: Direct LDL Cholesterol 66.67 mg/dL (100-129)
== END ==
PROVIDERS: PCP Internal Medicine; Visit Provider Internal Medicine
DX: I10 Essential (primary) hypertension (principal); E78.5 Hyperlipidemia, unspecified; Z85.3 Personal history of malignant neoplasm of breast
CPT/HCPCS: 36415; 80053; 80061; 85025

== ENCOUNTER → 2022-02-22 14:28 | Outpatient (CLI) | payer MEDICARE, SELFPAY ==
--- NOTE | 2022-02-22 14:31 | CT_ITS ---
FINAL REPORT CLINICAL HISTORY: HEADACHEs off and on, denies blurred vision FINDINGS: Axial images of the head were obtained without contrast. Coronal reformatted images were also obtained.This study was performed with techniques to keep radiation doses as low as reasonably achievable (ALARA). Individualized dose reduction techniques using automated exposure control or adjustment of mA and/or kV according to the patient's size were employed. There is no evidence of intracranial hemorrhage or mass. The ventricular size is within normal limits. There is no evidence of shift of the midline structures. No abnormal extra axial fluid collection is identified. No skull abnormality is seen on the bone window images. IMPRESSION: No acute intracranial abnormality. Reviewed, Interpreted and Dictated by Jeremy Camarena III, MD Transcribed by Estela Salazar Authenticated and [facility]
== END ==
PROVIDERS: PCP Internal Medicine; Visit Provider Internal Medicine
DX: R51.9 Headache, unspecified (principal)
CPT/HCPCS: 70450

== ENCOUNTER → 2022-07-26 09:15 | Outpatient (CLI) | payer MEDICARE, SELFPAY ==
[2022-07-26 09:57] LABS: Basophils % 0.3 % (0.1-2.0); Eosinophils # 0.2 K/mm3 (0.0-0.4); Eosinophils % 2.3 % (0.1-12.0); Hematocrit 44.4 % (37.0-47.0); Hemoglobin 14.2 g/dL (12.2-16.2); Lymphocytes # 1.7 K/mm3 (0.7-4.5); Lymphocytes % 21.5 % (10-50); Mean Corpuscular HGB Conc 31.9 g/dL (31.8-35.4); Mean Corpuscular Hemoglobin 30.5 pg (27.0-31.2); Mean Corpuscular Volume 95.5 fl (81-99); Mean Platelet Volume 8.1 fl (7.4-10.4); Monocytes # 0.4 K/mm3 (0.1-1.0); Monocytes % 5.4 % (1.7-9.3); Neutrophils # 5.5 K/mm3 (1.8-7.8); Neutrophils % 70.4 % (37.0-80.0); Platelet Count 287 K/mm3 (142-424); Red Blood Count 4.65 M/mm3 (4.20-5.40); Red Cell Distribution Width 13.2 % (11.5-17.5); White Blood Count 7.9 K/mm3 (4.8-10.8)
[2022-07-26 10:28] LABS: Alanine Aminotransferase 18 U/L (12-78); Albumin Level 4.2 g/dl (3.5-5.0); Albumin/Globulin Ratio 1.8 (1.1-1.8); Alkaline Phosphatase 88 U/L (38-126); Anion Gap 11.2 mEq/L (5-15); Aspartate Amino Transferase 31 U/L (14-36); Bilirubin,Total 2.1 mg/dl (0.2-1.3); Blood Urea Nitrogen 19 mg/dl (7-17); Calcium 9.4 mg/dl (8.4-10.2); Carbon Dioxide 31 mmol/L (22.0-30.0); Chloride 102 mmol/L (98-107); Chol/HDL Ratio 1.8 (1-3.5); Cholesterol 148 mg/dl (140-200); Estimated Glomerular Filt Rate 80 ml/min (>60); GFR (African American) 97 ML/MIN (>60); Globulin 2.4 g/dL (1.3-3.2); Glucose 86 mg/dl (74-100); HDL Cholesterol 82 mg/dl (40-60); Potassium 4.2 mmoL/L (3.5-5.1); Sodium 140 mmol/L (136-145); Total Protein,Serum 6.6 g/dl (6.3-8.2); Triglycerides 65 mg/dl (30-150); VLDL Cholesterol 13 mg/dL (0-40)
[2022-07-26 10:39] LABS: Direct LDL Cholesterol 61.52 mg/dL (100-129)
[2022-07-26 12:23] LABS: Erythrocyte Sedimentation Rate 21 mm/hr (0-30)
== END ==
PROVIDERS: PCP Internal Medicine; Visit Provider Internal Medicine
DX: I10 Essential (primary) hypertension (principal); E78.5 Hyperlipidemia, unspecified; K58.0 Irritable bowel syndrome with diarrhea; M81.0 Age-related osteoporosis without current pathological fracture; M41.25 Other idiopathic scoliosis, thoracolumbar region; Z80.3 Family history of malignant neoplasm of breast
CPT/HCPCS: 36415; 80053; 80061; 85025; 85651

== ENCOUNTER → 2022-09-09 15:18 | Outpatient (CLI) | payer MEDICARE, SELFPAY ==
[2022-09-09 16:01] LABS: Basophils % 0.3 % (0.1-2.0); Eosinophils # 0.3 K/mm3 (0.0-0.4); Eosinophils % 3.3 % (0.1-12.0); Hematocrit 44.2 % (37.0-47.0); Hemoglobin 13.8 g/dL (12.2-16.2); Lymphocytes # 1.7 K/mm3 (0.7-4.5); Lymphocytes % 17.5 % (10-50); Mean Corpuscular HGB Conc 31.3 g/dL (31.8-35.4); Mean Corpuscular Hemoglobin 29.8 pg (27.0-31.2); Mean Corpuscular Volume 95.1 fl (81-99); Mean Platelet Volume 8.3 fl (7.4-10.4); Monocytes # 0.6 K/mm3 (0.1-1.0); Monocytes % 6.3 % (1.7-9.3); Neutrophils # 6.9 K/mm3 (1.8-7.8); Neutrophils % 72.5 % (37.0-80.0); Platelet Count 280 K/mm3 (142-424); Red Blood Count 4.65 M/mm3 (4.20-5.40); Red Cell Distribution Width 13.3 % (11.5-17.5); White Blood Count 9.5 K/mm3 (4.8-10.8)
[2022-09-09 16:33] LABS: Alanine Aminotransferase 23 U/L (12-78); Albumin Level 4.4 g/dl (3.5-5.0); Albumin/Globulin Ratio 1.7 (1.1-1.8); Alkaline Phosphatase 141 U/L (38-126); Amylase 88 U/L (30-110); Anion Gap 14.8 mEq/L (5-15); Aspartate Amino Transferase 69 U/L (14-36); Bilirubin,Total 1.6 mg/dl (0.2-1.3); Blood Urea Nitrogen 19 mg/dl (7-17); Calcium 9.7 mg/dl (8.4-10.2); Carbon Dioxide 29 mmol/L (22.0-30.0); Chloride 102 mmol/L (98-107); Estimated Glomerular Filt Rate 69 ml/min (>60); GFR (African American) 83 ML/MIN (>60); Globulin 2.6 g/dL (1.3-3.2); Glucose 120 mg/dl (74-100); Potassium 4.8 mmoL/L (3.5-5.1); Sodium 141 mmol/L (136-145)
== END ==
PROVIDERS: PCP Internal Medicine; Visit Provider Internal Medicine
DX: R10.13 Epigastric pain (principal); R11.0 Nausea
CPT/HCPCS: 36415; 80053; 82150; 85025

== ENCOUNTER → 2022-09-13 09:50 | Outpatient (CLI) | payer MEDICARE, SELFPAY ==
--- NOTE | 2022-09-13 09:54 | FL_ITS ---
FINAL REPORT CLINICAL HISTORY: EPIGASTRIC PAIN,NAUSEA,ELEVATED LFT, FT 2:26 FINDINGS: UPPER GI EXAM HISTORY: Abdominal pain, nausea. PROCEDURE: The patient ingested barium. Effervescent crystals were also administered. Spot and overhead films were obtained. FINDINGS: The esophagus demonstrates marked esophageal dysmotility. There is relative narrowing of the distal esophagus. However, a 13 mm barium tablet does pass through the narrowing. There is moderate gastroesophageal reflux.. The rugal fold pattern of the stomach is normal. The duodenal bulb is normal. There is mild narrowing of the post bulbar segment of the proximal duodenum. This may be due to scarring. FLUOROSCOPY TIME: 2 minutes 26 seconds IMPRESSION: 1. Marked esophageal dysmotility with moderate gastroesophageal reflux. 2. Relative narrowing of the distal esophagus. This does allow passage of a 13 mm barium tablet. 3. Mild narrowing of the post bulbar segment of the proximal duodenum. 4. Endoscopic correlation is recommended. Films reviewed , interpreted and dictated by Dr. Camarena Transcribed by Joseph Martinez PA-C. Reviewed, Interpreted and Dictated by Jeremy Camarena III, MD Transcribed by ADALGISA Raymond Authenticated and [facility]
== END ==
LOC: RAD 09:50
PROVIDERS: PCP Internal Medicine; Visit Provider Internal Medicine
DX: R10.13 Epigastric pain (principal); R11.0 Nausea
CPT/HCPCS: 74221; 74246

== ENCOUNTER → 2022-09-16 06:47 | Outpatient (CLI) | payer MEDICARE, SELFPAY ==
--- NOTE | 2022-09-16 06:50 | US_ITS ---
FINAL REPORT TECHNIQUE: Sonographic images of the right upper quadrant were obtained. CLINICAL HISTORY: EPIGASTRIC PAIN FINDINGS: PANCREAS: Tail of the pancreas is obscured. Head of the pancreas is normal. LIVER: Homogeneous. No focal hepatic lesion. No intrahepatic biliary ductal dilatation. GALLBLADDER: Surgically absent. COMMON DUCT: 6 mm. Normal for age. RIGHT KIDNEY: The right kidney measures 8.7 cm. A small cortical cyst is seen measuring 7 mm. There is no hydronephrosis or stone. FREE FLUID: None. IMPRESSION: Small right renal cyst, otherwise unremarkable exam. Reviewed, Interpreted and Dictated by Viola Ramírez MD Transcribed by Vanessa Campos Authenticated and [facility]
== END ==
PROVIDERS: PCP Internal Medicine; Visit Provider Internal Medicine
DX: R10.13 Epigastric pain (principal); R11.0 Nausea
CPT/HCPCS: 76705

== ENCOUNTER → 2023-02-03 09:46 | Outpatient (CLI) | payer MEDICARE, SELFPAY ==
[2023-02-03 10:53] LABS: Chloride 101 mmol/L (98-107)
[2023-02-03 10:54] LABS: Potassium 4.1 mmoL/L (3.5-5.1); Sodium 139 mmol/L (136-145)
[2023-02-03 10:56] LABS: Alanine Aminotransferase 20 U/L (12-78); Albumin Level 4.3 g/dl (3.5-5.0); Albumin/Globulin Ratio 1.6 (1.1-1.8); Alkaline Phosphatase 92 U/L (38-126); Anion Gap 9.1 mEq/L (5-15); Aspartate Amino Transferase 33 U/L (14-36); Bilirubin,Total 1.5 mg/dl (0.2-1.3); Blood Urea Nitrogen 20 mg/dl (7-17); Carbon Dioxide 33 mmol/L (22.0-30.0); Estimated Glomerular Filt Rate 69 ml/min (>60); GFR (African American) 83 ML/MIN (>60); Globulin 2.7 g/dL (1.3-3.2)
[2023-02-03 10:57] LABS: Calcium 9.5 mg/dl (8.4-10.2); Chol/HDL Ratio 2.3 (1-3.5); Cholesterol 173 mg/dl (140-200); Glucose 92 mg/dl (74-100); HDL Cholesterol 74 mg/dl (40-60); Triglycerides 73 mg/dl (30-150); VLDL Cholesterol 15 mg/dL (0-40)
[2023-02-03 11:08] LABS: Direct LDL Cholesterol 78.37 mg/dL (100-129)
== END ==
PROVIDERS: PCP Internal Medicine; Visit Provider Internal Medicine
DX: I10 Essential (primary) hypertension (principal); E78.5 Hyperlipidemia, unspecified
CPT/HCPCS: 36415; 80053; 80061

== ENCOUNTER 2023-07-25 15:15 | Outpatient (CLI) | payer MEDICARE, SELFPAY ==
--- NOTE | 2023-07-25 | CA_ITS ---
FINAL REPORT TECHNIQUE: Graded compression, spectral analysis and ultrasound images of the venous system of the upper extremity were obtained. CLINICAL HISTORY: left arm pain w/o trauma COMPARISON: None FINDINGS: The jugular vein, subclavian vein, axillary vein, brachial vein, cephalic vein and basilic venous system are fully compressible and demonstrate no evidence of thrombosis. IMPRESSION: No evidence of thrombosis of the venous system of the left upper extremity. Reviewed, Interpreted and Dictated by Silvestre Cagle MD Transcribed by Keyla Samuel Authenticated and [facility]
== END 2023-07-25 23:59 | disposition home or self-care (01) ==
LOC: RT 15:16
PROVIDERS: PCP Internal Medicine; Visit Provider Internal Medicine
DX: M79.602 Pain in left arm (principal)
CPT/HCPCS: 93971

== ENCOUNTER 2023-08-12 08:57 | Outpatient (CLI) | payer MEDICARE, SELFPAY ==
[2023-08-12 09:29] LABS: Basophils # 0.1 K/mm3 (0-0.2); Basophils % 0.6 % (0.1-2.0); Eosinophils # 0.3 K/mm3 (0.0-0.4); Eosinophils % 2.7 % (0.1-12.0); Hematocrit 41.9 % (37.0-47.0); Hemoglobin 13.6 g/dL (12.2-16.2); Lymphocytes % 15.7 % (10-50); Mean Corpuscular HGB Conc 32.3 g/dL (31.8-35.4); Mean Corpuscular Hemoglobin 31.3 pg (27.0-31.2); Mean Corpuscular Volume 96.7 fl (81-99); Mean Platelet Volume 7.7 fl (7.4-10.4); Monocytes # 0.7 K/mm3 (0.1-1.0); Monocytes % 5.5 % (1.7-9.3); Neutrophils # 9.6 K/mm3 (1.8-7.8); Neutrophils % 75.6 % (37.0-80.0); Platelet Count 330 K/mm3 (142-424); Red Blood Count 4.33 M/mm3 (4.20-5.40); Red Cell Distribution Width 14.2 % (11.5-17.5); White Blood Count 12.8 K/mm3 (4.8-10.8)
[2023-08-12 09:47] LABS: Chloride 104 mmol/L (98-107); Potassium 4.5 mmoL/L (3.5-5.1); Sodium 140 mmol/L (136-145)
[2023-08-12 09:49] LABS: Blood Urea Nitrogen 20 mg/dl (7-17); Estimated Glomerular Filt Rate 69 ml/min (>60); GFR (African American) 83 ML/MIN (>60)
[2023-08-12 09:50] LABS: Alanine Aminotransferase 16 U/L (12-78); Albumin Level 3.6 g/dl (3.5-5.0); Albumin/Globulin Ratio 1.4 (1.1-1.8); Alkaline Phosphatase 91 U/L (38-126); Anion Gap 8.5 mEq/L (5-15); Aspartate Amino Transferase 29 U/L (14-36); Calcium 9.8 mg/dl (8.4-10.2); Carbon Dioxide 32 mmol/L (22.0-30.0); Chol/HDL Ratio 2.9 (1-3.5); Cholesterol 165 mg/dl (140-200); Globulin 2.6 g/dL (1.3-3.2); Glucose 92 mg/dl (74-100); HDL Cholesterol 57 mg/dl (40-60); Total Protein,Serum 6.2 g/dl (6.3-8.2); Triglycerides 121 mg/dl (30-150); VLDL Cholesterol 24 mg/dL (0-40)
== END 2023-08-12 23:59 | disposition home or self-care (01) ==
LOC: LAB 08:58
PROVIDERS: PCP Internal Medicine; Visit Provider Internal Medicine
DX: I10 Essential (primary) hypertension (principal); E78.5 Hyperlipidemia, unspecified; M41.9 Scoliosis, unspecified; Z72.0 Tobacco use
CPT/HCPCS: 36415; 80053; 80061; 85025

== ENCOUNTER 2023-08-23 09:48 | Outpatient (CLI) | payer MEDICARE, SELFPAY ==
--- NOTE | 2023-08-23 09:48 | MR_ITS ---
FINAL REPORT TECHNIQUE: Multiplanar MR without contrast. CLINICAL HISTORY: Persisting left wrist pain and swelling on the rad FINDINGS: Marrow signal demonstrates a small area of marrow edema at the lateral cortex of the radial styloid. There is a small cortical defect which may be related to a small chip fracture or chronic impingement associated with the abductor pollicis longus and extensor pollicis brevis tendons. Who Carpal tunnel is unremarkable. The TFCC is intact. No cystic or soft tissue mass lesion is seen. IMPRESSION: Localized marrow edema at the medial lateral cortex of the radial styloid with small cortical defect likely either posttraumatic or related to impingement associated with the adjacent tendons. Reviewed, Interpreted and Dictated by Sara Chua MD Transcribed by Vanessa Campos Authenticated and [facility]
== END 2023-08-23 23:59 | disposition home or self-care (01) ==
LOC: RAD 09:48
PROVIDERS: PCP Internal Medicine; Visit Provider Internal Medicine
DX: M25.532 Pain in left wrist (principal)
CPT/HCPCS: 73221

== ENCOUNTER 2024-02-09 09:40 | Outpatient (CLI) | payer MEDICARE, SELFPAY ==
[2024-02-09 10:08] LABS: Basophils % 0.5 % (0.1-2.0); Eosinophils # 0.2 K/mm3 (0.0-0.4); Eosinophils % 3.4 % (0.1-12.0); Hematocrit 42.7 % (37.0-47.0); Lymphocytes # 1.6 K/mm3 (0.7-4.5); Lymphocytes % 23.3 % (10-50); Mean Corpuscular HGB Conc 32.8 g/dL (31.8-35.4); Mean Corpuscular Hemoglobin 30.4 pg (27.0-31.2); Mean Corpuscular Volume 92.6 fl (81-99); Mean Platelet Volume 7.5 fl (7.4-10.4); Monocytes # 0.4 K/mm3 (0.1-1.0); Monocytes % 5.5 % (1.7-9.3); Neutrophils # 4.7 K/mm3 (1.8-7.8); Neutrophils % 67.2 % (37.0-80.0); Platelet Count 275 K/mm3 (142-424); Red Blood Count 4.61 M/mm3 (4.20-5.40); Red Cell Distribution Width 13.8 % (11.5-17.5); White Blood Count 6.9 K/mm3 (4.8-10.8)
[2024-02-09 11:00] LABS: Albumin Level 3.7 g/dl (3.5-5.0); Chloride 106 mmol/L (98-107); Sodium 140 mmol/L (136-145)
[2024-02-09 11:01] LABS: Potassium 4.3 mmoL/L (3.5-5.1)
[2024-02-09 11:03] LABS: Alanine Aminotransferase 17 U/L (12-78); Albumin/Globulin Ratio 1.7 (1.1-1.8); Anion Gap 7.3 mEq/L (5-15); Aspartate Amino Transferase 32 U/L (14-36); Blood Urea Nitrogen 21 mg/dl (7-17); Carbon Dioxide 31 mmol/L (22.0-30.0); Estimated Glomerular Filt Rate 69 ml/min (>60); GFR (African American) 83 ML/MIN (>60); Globulin 2.2 g/dL (1.3-3.2); Total Protein,Serum 5.9 g/dl (6.3-8.2)
[2024-02-09 11:04] LABS: Alkaline Phosphatase 81 U/L (38-126); Bilirubin,Total 1.4 mg/dl (0.2-1.3); Calcium 9.7 mg/dl (8.4-10.2); Cholesterol 144 mg/dl (140-200); Glucose 92 mg/dl (74-100); Triglycerides 76 mg/dl (30-150); VLDL Cholesterol 15 mg/dL (0-40)
[2024-02-09 11:25] LABS: Direct LDL Cholesterol 64.81 mg/dL (100-129)
[2024-02-09 11:42] LABS: Chol/HDL Ratio 2.5 (1-3.5); HDL Cholesterol 57 mg/dl (40-60)
[2024-02-22 18:08] LABS: 1,25 Dihydroxy Vitamin D 32 pg/mL (.); 1,25-Dihydroxy, Vitamin D-2 <10 pg/mL (.); 1,25-Dihydroxy, Vitamin D-3 32 pg/mL (.)
== END 2024-02-09 23:59 | disposition home or self-care (01) ==
LOC: LAB 09:41
PROVIDERS: PCP Internal Medicine; Visit Provider Internal Medicine
DX: I10 Essential (primary) hypertension (principal); E78.5 Hyperlipidemia, unspecified; E55.9 Vitamin D deficiency, unspecified
CPT/HCPCS: 36415; 80053; 80061; 82652; 85025

== ENCOUNTER 2024-05-14 09:30 | Outpatient (CLI) | payer MEDICARE, SELFPAY ==
[2024-05-14 10:45] LABS: Chol/HDL Ratio 3.1 (1-3.5); Cholesterol 205 mg/dl (140-200); HDL Cholesterol 67 mg/dl (40-60); Triglycerides 88 mg/dl (30-150); VLDL Cholesterol 18 mg/dL (0-40)
== END 2024-05-14 23:59 | disposition home or self-care (01) ==
LOC: LAB 09:31
PROVIDERS: PCP Internal Medicine; Visit Provider Internal Medicine
DX: E78.5 Hyperlipidemia, unspecified (principal)
CPT/HCPCS: 36415; 80061

== ENCOUNTER 2024-08-09 09:10 | Outpatient (CLI) | payer MEDICARE, SELFPAY ==
--- OUTSIDE RECORDS SUMMARY | 2024-08-09 09:15 | XMS_ITS | Clinical Summary ---
Author Organization [facility] Address [address] [place] [address] Phone Care Team Providers Care Test Lead Name Role Phone Giovany Grubbs MD Primary Care Provider [phone] Letty Gonzalez MD Unavailable [phone] Allergies Active Allergy Reactions Criticality Noted Date Comments Levofloxacin Other (See Comments) Medium 12/14/2015 Froze up legs-couldn't move them Penicillins Hives Medium 10/16/2012 Fainted and had hives as a child Sulfa (Sulfonamide Antibiotics) Hives Medium 10/16/2012 Fainted and hives as a child Medications irbesartan (AVAPRO) 150 mg tablet Take 75 mg by mouth 2 times daily. Active rosuvastatin (CRESTOR) 5 mg Oral Tablet Take 5 mg by mouth nightly. Active ipratropium (ATROVENT) 0.03 % Nasl [place]ipple[place], Non-AerosolIndi cations:Post-na lolita drip 2 Sprays by Nasal route 3 times daily. 16 mL 6 Active Additional Information Patient taking differently:2 Ripple[place] NasalNIGHTLY, Reason: Advised by Physician, Reported on 07/16/2021 ALPRAZolam (XANAX) 0.25 mg Oral Tablet Take by mouth nightly. 2 Active flurbiprofen (ANSAID) 100 mg Oral Tablet Take by mouth daily as needed. 2 Active calcium-vits L0-A-A7-mineral s 166.75 mg- 166.75 unit Oral Capsule Take by mouth every morning. Active ZINC ORAL Take by mouth every morning. Active ascorbic acid (VITAMIN C ORAL) Take by mouth every morning. Active lactobacillus rhamnosus, GG, (CULTURELLE) 10 billion cell Oral Capsule Take 1 Capsule by mouth daily. Active cyanocobalamin 100 mcg Oral Tablet Take by mouth daily. Active oxyCODONE (ROXICODONE) 5 mg Oral Tablet Take 1 Tablet by mouth every 4 hours as needed for Major Surgery/Trauma (G89.18). 15 Tablet 2 Active estradioL (ESTRACE) 0.01 % (0.1 mg/gram) Vagl Cream Apply a pea-sized amount to vagina three times a week 1 Each 2 2 Active famotidine (PEPCID) 20 mg Oral Tablet Take 20 mg by mouth daily. Active omeprazole (PRILOSEC) 20 mg Oral Capsule, Delayed Release(E.C.)In dications:Erosi ve gastritis Take 1 Capsule by mouth 2 times daily (before meals). 60 Capsule 11 3 Active Active Problems Problem Noted Date Diagnosed Date Malignant neoplasm of left b reast in female, estrogen receptor positive 07/11/2021 Cancer Staging:Clinical stage from 07/11/2021:Stage IA(cT1c, cN0, cM0, G2, ER+, OH+, HER2-) - Signed by Nguyen Bhandari MD on 07/11/2021 Surgical History Surgery Date Site/Laterality Comments SPINAL FUSION 03/03/1951 CHOLECYSTECTOMY 03/03/1993 TONSILLECTOMY 03/03/2011 HYSTERECTOMY 03/03/1980 bleeding, left ovary removed HAND SURGERY 03/03/2010 thumb BREAST BIOPSY 07/05/2021 Left BREAST LUMPECTOMY 07/16/2021 Left left breast lumpectomy ; Surgeon: Nguyen Bhandari MD; Location: [facility]; Service: General BREAST BIOPSY 08/12/2022 Right 9:00 o'clock mass APPENDECTOMY 03/03/1993 Medical History Medical History Date Comments Hypertension Hyperlipidemia Malignant neoplasm of left breast (HCC) 07/2021 Scoliosis COYLE (dyspnea on exertion) due to the scoliosis Irritable bowel syndrome Arthritis Wears hearing aid in both ears Family History Medical History Relation Name Comments Hearing Loss Brother Heart Disease Brother Hypertension Brother Aneurysm Father AAA No Known Problems Maternal Grandfather No Known Problems Maternal Grandmother Hearing Loss Mother No Known Problems Other No Known Problems Paternal Grandfather No Known Problems Paternal Grandmother No Known Problems Sister Anesth Problems Neg Hx Relation Name Status Comments Brother Father Maternal Grandfather Maternal Grandmother Mother Other Paternal Grandfather Paternal Grandmother Sister Social History Tobacco Use Types Packs/Day Years Used Date Smoking Tobacco: Former Cigarettes Q uit: 1988 Smokeless Tobacco: Never Tobacco Cessation:Counseling Given: Not Answered Comments:libertarian smoker Alcohol Use Standard Drinks/Week Comments Not Currently 0 (1 standard drink = 0.6 oz pur e alcohol) occasional Sexually Active Control Partners Comments Yes Post-menopausal, Surgical Male hy st Comments No Sex and Gender Information Value Date Recorded Sex Assigned at Not on file Legal Sex Female 1:23 AM EDT Gender Identity Not on file Sexual Orientation Not on file Obstetrics History Para Term AB IAB SAB Ectopic Multiple Livin g Live Births 3 3 Date Outcome GA Total Labor Labor/2nd/3rd Weight Sex Type Anes PTL Nicole A1 A5 Name Clin Para Para Para Last Filed Vital Signs Vital Sign Reading Time Taken Comments Blood Pressure 123/72 12/25/2022 9:53 AM EDT Pulse 75 12/25/2022 9:53 AM EDT Temperature 36.2 C (97.2 F) 10/14/2023 4:19 PM EDT Respiratory Rate 16 12/25/2022 9:5 3 AM EDT Oxygen Saturation 96% 12/25/2022 9:53 AM EDT Inhaled Oxygen Concentration - - Weight 50.7 kg (111 lb 12.8 oz) 10/14/2023 4:19 PM EDT Height 152.4 cm (5') 10/14/2023 4:19 PM EDT Body Mass Index 21.83 10/14/2023 4:19 PM EDT Plan of Treatment Health Maintenance Due Date Last Done Comments Wellness Exam Medicare 01/09/1943 DTaP/TDaP/Td (1 - Tdap) 01/09/1960 Zoster (1 of 2) 1991 Pneumococcal Vaccine 50+ (2 of 2 - PCV) 02/11/2008 02/10/2007 RSV or 60+ (1 - 1-dose 75+ series) 01/09/2016 COVID-19 Vaccine (2023-2 5 season) 2023 11/30/2020, 04/27/2020, 04/07/2020 Influenza Vaccine (Season Ended) 2024 01/19/2020 Bone Density Screening Completed , 06/18/2021, 12/17/2016 Hepatitis B Vaccine Aged Out No longe r eligible based on patient's age to complete this topic Meningococcal B Vaccine Aged Out No l onger eligible based on patient's age to complete this topic Goals Goal Patient Goal Type Associated Problems Recent Progress Patient-Stated? Author Breast [facility] On track( 022 2:52 PM EST) Ciera Buck, RN Note: Patient acknowledges understanding of new diagnosis, plan of care, available resources and how to contact Nurse Navigator with any future questions or concerns. Breast [facility] Agustina Benoit RN Note: Patient will be compliant with recommended breast imaging. [place] Care Teams Test Lead Relationship Specialty Start Date End Date Giovany Grubbs MD [address] [place] [address] [place] [id number] PCP - General Internal Medicine 04/18/11 Letty Gonzalez MD [address] [facility] [address] [place] [address] Otolaryngology 07/01/23
--- OUTSIDE RECORDS SUMMARY | 2024-08-09 09:15 | XMS_ITS | Encounter Summary ---
Author Organization [place] [address] Care Team Providers Care Brainer Name Role Phone Giovany Grubbs MD Primary Care Provider [phone] Letty Gonzalez MD Unavailable [phone] Encounter Details Date Type Department Care Team (Late st Contact Info) Description 07/05/2021 Orders Only [facility] [address] [place] [id number] Renetta Bear MD [address] [place] [address] Social History Tobacco Use Types Packs/Day Years Used Date Smoking Tobacco: Former Cigarettes Q uit: 12/13/2004 Smokeless Tobacco: Never Alcohol Use Standard Drinks/Week Comments No 0 (1 standard drink = 0.6 oz pur e alcohol) Sexually Active Control Partners Comments Yes Post-menopausal, Surgical Male hy st Comments No Sex and Gender Information Value Date Recorded Sex Assigned at Not on file Legal Sex Female 1:23 AM EDT Gender Identity Not on file Sexual Orientation Not on file COVID-19 Exposure Response Date Recorded In the last 10 days, have yo u been in contact with someone who was confirmed or suspected to have Coronavirus/COVID-19? No / Unsure 07/05/2021 10:11 AM EDT documented as of this encounter Plan of Treatment Not on file documented as of this encounter Procedures Procedure Name Priority Date/Time Associated Diagnosis Comments NEOGENJive Bike BREAST PANEL (3 STAIN) Routine 07/05/2021 11:21 AM EDT documented in this encounter Results * NEOGENOMICS BREAST PANEL (3 STAIN) (07/05/2021 11:21 AM EDT) 07/05/2021 11:2 1 AM EDT Narrative [facility] - 07/10/2021 11:24 AM EDT Requesting Provider: Nguyen Martin Specimen = [id number] us Renetta Bear MD PATHOLOGY ORDERABLES Final Resul t [facility] [address] [place] [address] documented in this encounter Visit Diagnoses Not on filedocumented in this encounter Care Teams Brainer Relationship Specialty Start Date End Date Giovany Grubbs MD [address] [place] [address] PCP - General Internal Medicine 04/18/11 Letty Gonzalez MD [address] [facility] [address] [place] [address] Otolaryngology 07/01/23 documented as of this encounter
--- OUTSIDE RECORDS SUMMARY | 2024-08-09 09:15 | XMS_ITS ---
Author Organization [facility] Address [address] [place] [address] Phone Care Team Providers Care Research Pharmacist Name Role Phone Giovany Grubbs MD Primary Care Provider [phone] Letty Gonzalez MD Unavailable [phone] Active Problems Problem Noted Date Diagnosed Date Malignant neoplasm of left b reast in female, estrogen receptor positive 07/11/2021 Cancer Staging:Clinical stage from 07/11/2021:Stage IA(cT1c, cN0, cM0, G2, ER+, CT+, HER2-) - Signed by Nguyen Bhandari MD on 07/11/2021 Current Treatment and Therapy Plans No current plan information found. Past Treatment and Therapy Plans No past plan information found. Treatment Summaries Malignant neoplasm of left breast in female, estrogen receptor positive (HCC)* Cancer Treatment Plan and Summary Provided by [facility] General Information Patient name Annie Vieira (home) Date of 1940 Age 82 y.o. Care Team Surgeon Dr. 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 Genetics testing No Genetic testing performed Tobacco use Former smoker 0.5 ppd Quit 1988 Treatment Summary Surgical procedure Left breast lumpectomy with Dr. Nguyen Bhandari 07/16/2021 Oncology Timeline Oncology History Malignant neoplasm of left breast in female, estrogen receptor positive (HCC) 06/27/2021 - Consult Initial consultation with surgeon-Dr. 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 Left breast, partial mastectomy: - Invasive mucinous carcinoma, grade 2, 1.8 cm B. Left breast, additional posterior margin, excision: - Benign breast tissue with small portion of benign skeletal muscle. - Negative for carcinoma 07/25/2021 - Other Tamoxifen declined Stage Pathologic Stage IA (pT1c, cN0, M0, G2, ER+, Pr+, HER2-) Follow-up and Survivorship Care When / How Often? Coordinating Provider Surgical visits Every 6-12 months or as directed Dr. Nguyen Bhandari Lab tests To evaluate symptoms Dr. Nguyen Bhandari Imaging Diagnostic mammogram x [address] screening annually. Dr[address] Nguyen Bhandari Breast Cancer Surveillance Recommendations Patient Surveillance Recommendations Please follow these recommendations when following up with your team of physicians: Surgeon: Follow up every 3-6 months for two or more visits and then annually or as directed by yourphysician at the [facility] or [facility]. Primary Care: Follow up annually. Security System Sales Consultant: Follow up annually or as directed by Security System Sales Consultant. Diagnostic Testing Mammogram: Diagnostic imaging should be performed annually or more often as directed by your Surgeon and/or Radiologist unless bilateral or unilateral mastectomy was performed. After having diagnostic mammograms for five years, screening mammogram will be performed annually Bone Density: Should be performed every one to two years if you are on an Aromatase Inhibitor such as Anastrozole, Femara, or Aromasin or per primary care provider if post-menopausal. MRI, PET, CT Scan, chest x-ray, bone scan, ultrasound are recommended for surveillance only when symptoms indicate a need Physical exam by your healthcare provider, including breast exam, every 3-6 months for 1 year, thenevery 12 months or as directed by your physician. Self-breast exams monthly Recommendations Self-care plan: What you can do to stay healthy after treatment for breast cancer Cancer treatments may increase your chance of developing other health problems years after you havecompleted treatment. The purpose of this self-care plan is to inform you about what steps you can take to maintain good health after cancer treatment, including coping with side effects of treatment,reducing the risk of cancer returning, and watching for signs of cancer returning or of a new cancer. Keep in mind that every person treated for breast cancer is different and that these recommendations are not intended to be a substitute for the advice of a doctor or other healthcare professional.Please use these recommendations to talk with your doctor and healthcare team about an appropriate follow up care plan for you. You should have a medical history and physical exam that is focused on detecting signs of cancer recurrence or of new cancers as directed by your physician. The frequency of these exams may vary depending on the stage of cancer and other risk factors. If you had breast cancer once, there is a chance that it may come back or spread to other parts of your body. This is important because most recurrent breast cancer is suspected or found by women themselves, and the majority of recurrences are detected between scheduled visits. After treatment, if you feel something isn???t right with your body,see your regular doctor, physician contact lens assistant, or nurse practitioner. If what you are feeling is urgent, go to an Urgent Care or Medical Walk-in Clinic. Tell the medical provider you had cancer and show them a copy of your cancer treatment summary. Become aware of your personal breast health, this includes monthly self-breast exams. Signs and symptoms to report for potential local recurrence Change in size, shape or contour of the lumpectomy breast Nipple discharge that is clear or blood tinged New onset of breast pain A new lump Thickening or a lump in breast tissue or on the chest wall after a mastectomy Changes in the skin including dimpling, scaly appearance, rash, redness or discoloration on the breast or chest wall A lump or thickening in the underarm area Monitoring for potential regional or distant recurrence New lump or thickening in the area above the collarbone Chronic bone pain or tenderness in an area Chest pain with shortness of breath Chronic cough Persistent abdominal pain or abdominal swelling Headaches, dizziness, fainting or rapid changes in vision Increasing fatigue unrelated to treatments Inability to control urine or bowels Persistent nausea or loss of appetite Changes in weight, especially weight loss Potential late effects of treatment After surgery you may experience numbness, weakness, loss of the range of motion and/or swelling (lymphedema) in the affected arm LIFE AFTER CANCER TREATMENT Managing fatigue Fatigue is one of the most common complaints of cancer survivors. Here are some ideas to help you manage your fatigue. Plan your day. Be active at the time of day you feel most alert and energetic. Save you energy by planning how you do things. For example sit on a stool when you cook or wash dishes. Take short naps or rest breaks Try to go to sleep and wake up at the same time every day Do what you enjoy but try to focus on interests that don???t tire you out. Let others help you. Choose how to spend your energy. Think about joining a support group Emotional difficulties Cancer survivors often experience a variety of positive and negative emotions, including relief, a sense of gratitude to be alive, fear of recurrence, anger, guilt, depression, anxiety, and isolation. Cancer survivors, caregivers, family, and friends may also experience post-traumatic stress disorder, an anxiety disorder that may develop after experiencing an extremely frightening or life-threatening situation. Each person???s post-treatment experience is different. For example, some survivors struggle with negative emotional effects of the cancer while others say that they have a renewed, positive outlook on life because of the cancer. Talk with a healthcare provider about your concerns Think about joining a support group Regular physical exercise Sexuality after breast cancer Breast cancer has changed many things in your life. One of the potential changes may be in the areaof your return to normal sexual function. Breast cancer and its treatment may alter the way you feel about your body, threatening your sense of femininity. Some women may have concerns about their sexual attractiveness to their partner. These feelings are normal. It is important to include your part ner when viewing the incisional area even though it may be a difficult time. Remember, you are still the same loving person your partner selected and surgery did not change that. During treatment you may have experienced fatigue and side effects from treatments that may have affected sexual functioning. These are normal interruptions that will resolve after treatments end. Guidelines for a Healthy Lifestyle Cut down on how much alcohol you drink. Research shows that drinking alcohol increases your chancesof getting certain types of cancers. Maintain a healthy weight. Eating well and staying active can help you reach a healthy weight and stay there. Obesity is a risk factor for developing breast cancer and for breast cancer recurrence. Eat well. Healthy food choices may help reduce the risk of cancer or recurrence. Talk with your doctor or a dietitian to find out about any special dietary needs that you may have. The [employer] and the [employer] have developed similar diet and fitness guidelines that may help reduce the risk of cancer: Eat a plant-based diet that includes at least 5-9 servings of fruit and vegetables daily. Try to include beans in your diet, and eat whole grains (such as cereals, breads, and pasta) several times daily. Choose foods low in fat and salt. Exercise and stay active. Research suggests that staying active after cancer can help lower the risk of recurrence and lead to longer survival. Moderate exercise (walking, biking, swimming) for about30 minutes every - or almost every - day can: Reduce anxiety and depression Improve mood and boost self-esteem Reduce fatigue, nausea, pain, and diarrhea
[2024-08-09 10:01] LABS: Basophils % 0.5 % (0.1-2.0); Eosinophils # 0.3 Kmm3 (0.0-0.4); Eosinophils % 3.4 % (0.1-12.0); Hematocrit 43.6 % (37.0-47.0); Hemoglobin 14.2 g/dL (12.2-16.2); Immature Granulocytes # 0.03 10^3uL; Immature Granulocytes % 0.3 %; Lymphocytes # 1.8 K/mm3 (0.7-4.5); Lymphocytes % 20.9 % (10-50); Mean Corpuscular HGB Conc 32.6 g/dL (31.8-35.4); Mean Corpuscular Hemoglobin 30.7 pg (27.0-31.2); Mean Corpuscular Volume 94.2 fl (81-99); Mean Platelet Volume 9.5 fl (7.4-10.4); Monocytes # 0.7 K/mm3 (0.1-1.0); Monocytes % 7.7 % (1.7-9.3); Neutrophils # 5.9 K/mm3 (1.8-7.8); Neutrophils % 67.2 % (37.0-80.0); Nucleated Red Blood Cells # 0 10^3/uL; Nucleated Red Blood Cells % 0 %; Platelet Count 321 K/mm3 (142-424); Red Blood Count 4.63 M/mm3 (4.20-5.40); Red Cell Distribution Width 12.9 % (11.5-17.5); Red Cell Distribution Width-SD 44.2 fL; White Blood Count 8.8 K/mm3 (4.8-10.8)
[2024-08-09 10:27] LABS: Alanine Aminotransferase 15 U/L (12-78); Albumin Level 4.1 g/dl (3.5-5.0); Albumin/Globulin Ratio 1.7 (1.1-1.8); Alkaline Phosphatase 83 U/L (38-126); Anion Gap 9.9 mEq/L (5-15); Aspartate Amino Transferase 27 U/L (14-36); Bilirubin,Total 1.3 mg/dl (0.2-1.3); Blood Urea Nitrogen 19 mg/dl (7-17); Calcium 9.7 mg/dl (8.4-10.2); Carbon Dioxide 31 mmol/L (22.0-30.0); Chloride 104 mmol/L (98-107); Chol/HDL Ratio 3.7 (1-3.5); Cholesterol 236 mg/dl (140-200); Estimated Glomerular Filt Rate 80 ml/min (>60); GFR (African American) 97 ML/MIN (>60); Globulin 2.4 g/dL (1.3-3.2); Glucose 109 mg/dl (74-100); HDL Cholesterol 63 mg/dl (40-60); Potassium 4.9 mmoL/L (3.5-5.1); Sodium 140 mmol/L (136-145); Total Protein,Serum 6.5 g/dl (6.3-8.2); Triglycerides 115 mg/dl (30-150); VLDL Cholesterol 23 mg/dL (0-40)
[2024-08-14 02:18] LABS: 1,25 Dihydroxy Vitamin D 48 pg/mL (.); 1,25-Dihydroxy, Vitamin D-2 <10 pg/mL (.); 1,25-Dihydroxy, Vitamin D-3 44 pg/mL (.)
== END 2024-08-09 23:59 | disposition home or self-care (01) ==
LOC: LAB 09:11
PROVIDERS: PCP Internal Medicine; Visit Provider Internal Medicine
DX: I10 Essential (primary) hypertension (principal); E78.5 Hyperlipidemia, unspecified; K21.9 Gastro-esophageal reflux disease without esophagitis; M15.0 Primary generalized (osteo)arthritis; E55.9 Vitamin D deficiency, unspecified
CPT/HCPCS: 36415; 80053; 80061; 82652; 85025

== ENCOUNTER 2025-02-11 09:32 | Outpatient (CLI) | payer MEDICARE, SELFPAY ==
[2025-02-11 09:50] LABS: Hematocrit 41.5 % (37.0-47.0); Hemoglobin 13.3 g/dL (12.2-16.2); Immature Granulocytes % 0.2 %; Mean Corpuscular HGB Conc 32.0 g/dL (31.8-35.4); Mean Corpuscular Hemoglobin 30.3 pg (27.0-31.2); Mean Corpuscular Volume 94.5 fl (81-99); Nucleated Red Blood Cells % 0 %; Platelet Count 278 K/mm3 (142-424); Red Blood Count 4.39 M/mm3 (4.20-5.40); Red Cell Distribution Width-SD 44.7 fL; White Blood Count 8.1 K/mm3 (4.8-10.8)
[2025-02-11 10:26] LABS: Alanine Aminotransferase 14 U/L (12-78); Albumin Level 4.0 g/dl (3.5-5.0); Albumin/Globulin Ratio 1.5 (1.1-1.8); Alkaline Phosphatase 80 U/L (38-126); Anion Gap 12.2 mEq/L (5-15); Aspartate Amino Transferase 31 U/L (14-36); Bilirubin,Total 1.0 mg/dl (0.2-1.3); Blood Urea Nitrogen 25 mg/dl (7-17); Calcium 9.6 mg/dl (8.4-10.2); Carbon Dioxide 30 mmol/L (22.0-30.0); Chloride 103 mmol/L (98-107); Cholesterol 195 mg/dl (140-200); Creatinine,Serum 0.80 mg/dl (0.52-1.04); Estimated Glomerular Filt Rate 68 ml/min (>60); GFR (African American) 83 ML/MIN (>60); Globulin 2.6 g/dL (1.3-3.2); Glucose 88 mg/dl (74-100); HDL Cholesterol 68 mg/dl (40-60); Potassium 4.2 mmoL/L (3.5-5.1); Sodium 141 mmol/L (136-145); Total Protein,Serum 6.6 g/dl (6.3-8.2); Triglycerides 73 mg/dl (30-150)
== END 2025-02-11 23:59 | disposition home or self-care (01) ==
LOC: LAB 09:33
PROVIDERS: PCP Internal Medicine; Visit Provider Internal Medicine
DX: M15.0 Primary generalized (osteo)arthritis (principal); I10 Essential (primary) hypertension; E78.5 Hyperlipidemia, unspecified
CPT/HCPCS: 36415; 80053; 80061; 85025